=== PATIENT | female | born 1980 | race African-American/Black ===

== ENCOUNTER 2021-07-05 12:31 | Outpatient (REF) | payer MEDICAID, SELFPAY ==
--- NOTE | ~2021-07-05 | MM_ITS ---
EXAMINATION: MM SCREENING DIGITAL BREAST TOMOSYNTHESIS, BILATERAL CLINICAL INFORMATION: Screening. Asymptomatic. Age 41. No prior breast imaging. Family history breast cancer, maternal aunt. The lifetime risk of breast cancer based on the Tyrer-Cuzick Model is 19%. COMPARISON: None (current study represents initial baseline exam). TECHNIQUE: Digital breast tomosynthesis is performed in both the craniocaudal and mediolateral oblique views along with computer-aided detection (CAD). Synthesized 2D images are generated from the tomosynthesis. Additional views are obtained: Right CC x2, right MLO, left CC x2, left MLO, exaggerated left CC. FINDINGS: The breasts are almost entirely fatty (ACR BI-RADS breast composition Category a). There is an oval nodule right breast mid upper outer quadrant measuring approximately 1.3 x 0.8 cm. Patient will be recalled for additional imaging to further characterize with targeted ultrasound. The remainder of the bilateral breasts show no significant mass or architectural abnormality or abnormal calcifications. The axilla and skin contours are unremarkable. MM/MM tomosynthesis screening BI IMPRESSION: 1. Right: Nodule mid upper outer quadrant 1.3 x 0.8 cm. 2. Left: No mammographic evidence of malignancy. ASSESSMENT: BI-RADS 0: Incomplete - Need Additional Imaging Evaluation RECOMMENDATION: 1. Targeted ultrasound right breast. 2. Radiology department staff will contact the patient for additional imaging. This patient's information was entered into a reminder system with a target due date for their next mammogram.
== END 2021-07-05 12:32 | disposition home or self-care (01) ==
LOC: HO.MAMMO 12:31
PROVIDERS: PCP Registered Nurse; Visit Provider Registered Nurse
DX: Z12.31 Encounter for screening mammogram for malignant neoplasm of breast (principal)
CPT/HCPCS: 77063; 77067

== ENCOUNTER 2021-07-15 15:16 | Outpatient (REF) | payer MEDICAID, SELFPAY ==
--- NOTE | ~2021-07-15 | US_ITS ---
EXAMINATION: US DIAGNOSTIC ULTRASOUND BREAST, RIGHT CLINICAL INFORMATION: Recall from baseline screening for smooth oval nodular asymmetry mid upper outer right breast. COMPARISON: Mammography 07/05/2021. TECHNIQUE: Ultrasound right breast is targeted to the upper outer quadrant. Grayscale imaging is performed without and with harmonics. Patient is imaged with arm up and arm down and oblique supine as well as semiupright. FINDINGS: There is no cystic or solid mass or architectural abnormality or focal duct ectasia. There is no ultrasound correlate. Results are discussed with the patient at time of visit. Finding on mammography has benign characteristics and may represent island of fibroglandular tissue. Chronicity is unknown given first appearance on baseline exam. Management plan is for short interval six-month follow-up right mammography. US/US breast RT limited IMPRESSION: No ultrasound correlate for probable benign finding on baseline screening mammography. ASSESSMENT: BI-RADS 3: Probably Benign RECOMMENDATION: Diagnostic right mammography in 6 months. This patient's information was entered into a reminder system with a target due date for their next mammogram.
== END 2021-07-15 15:17 | disposition home or self-care (01) ==
LOC: HO.MAMMO 15:16
PROVIDERS: PCP Registered Nurse; Visit Provider Registered Nurse
DX: N63.11 Unspecified lump in the right breast, upper outer quadrant (principal)
CPT/HCPCS: 76642

== ENCOUNTER 2022-01-17 14:43 | Outpatient (REF) | payer MEDICAID, SELFPAY ==
--- NOTE | ~2022-01-17 | MM_ITS ---
EXAMINATION: MM DIAGNOSTIC DIGITAL BREAST TOMOSYNTHESIS, RIGHT CLINICAL INFORMATION: Short interval six-month follow-up probable benign oval nodular asymmetry mid upper outer right breast initially noted at baseline exam. No ultrasound correlate. TC score 19%. COMPARISON: Mammography: 07/05/2021; right breast ultrasound 07/15/2021. TECHNIQUE: Digital breast tomosynthesis is performed in both the craniocaudal and mediolateral oblique views along with computer-aided detection (CAD). Synthesized 2D images are generated from the tomosynthesis. Additional exaggerated right CC and right MLO views are provided. FINDINGS: The breasts are almost entirely fatty (ACR BI-RADS breast composition Category a). Parenchymal pattern is similar to the baseline exam. The oval nodular asymmetry mid upper outer quadrant is stable. There is no developing density or interval architectural abnormality. Right breast will be reassessed again at time of annual bilateral mammography, due in 6 months. Results are provided to the patient at time of visit by the technologist. MM/MM tomosynthesis diagnostic RT IMPRESSION: -Right breast parenchymal pattern is stable when compared with prior baseline study. -No developing density or architectural abnormality. ASSESSMENT: BI-RADS 3: Probably Benign RECOMMENDATION: Diagnostic mammography at time of annual bilateral mammography, due in 6 months. This patient's information was entered into a reminder system with a target due date for their next mammogram.
== END 2022-01-17 14:44 | disposition home or self-care (01) ==
LOC: HO.MAMMO 14:43
PROVIDERS: PCP Registered Nurse; Visit Provider Registered Nurse
DX: N63.11 Unspecified lump in the right breast, upper outer quadrant (principal)
CPT/HCPCS: 77061; 77065

== ENCOUNTER 2022-09-07 13:41 | Emergency (ER) | payer MEDICAID, SELFPAY ==
--- NOTE | ~2022-09-07 | US_ITS ---
EXAMINATION: US OBSTETRICAL ULTRASOUND CLINICAL INFORMATION: Left lower quadrant pain with history of miscarriage COMPARISON: None available. Findings; There is a small fluid collection in the endometrial canal measuring 0.33 x 0.35 cm. This could represent a very early gestational sac. 4 weeks 6 days by ultrasound criteria. There is no pole. There is no yolk sac. Below the gestational sac in the lower uterine segment the endometrium is characterized by more mixed echogenicity. Some of this may be fluid and/or cystic change. Etiology is indeterminate. This could be blood product. The right ovary is not seen. The left ovary is seen transvaginally only. Measures 2.6 x 1.5 x 1.8 cm. The custodial worker outlines an area of abnormal echogenicity measuring approximately 2.3 x 2.1 x 2.6 cm, within the myometrium. However the margins are poorly defined within the surrounding myometrium. This could represent a fibroid There is no free pelvic fluid US/US OB pelvic and transvaginal IMPRESSION: There is a small fluid collection and the endometrial canal which could represent an early intrauterine gestational sac correlating to 4 weeks 6 days. There is no pole or yolk sac seen. Below this however in the lower uterine segment there is a more heterogeneous appearance to the endometrial canal. The etiology here is uncertain. This could represent blood products or microcystic change associated with the endometrium of other etiology. Attention to follow-up. Abnormal echogenicity in the myometrium posteriorly could represent fibroid change. Borders are poorly defined. Attention to follow-up. Recommend obstetrical consultation and follow-up
[2022-09-07 13:45] VITALS: BP 174/94; PULSE 106; RESP 18; TEMP 36.5; O2SAT 100; BMI 51.4
--- NOTE | 2022-09-07 13:49 | ED.GENADULT ---
HPI - General Adult General Chief complaint: Abdominal Pain Stated complaint: / left side pain/ spotting Time Seen by Provider: 09/07/22 18:15 Related Data Home Medications ?Medication ?Instructions ?Recorded ?Confirmed vitamin with calcium 1 tab PO QAM 09/11/22 no.72-iron 27 mg-folic acid 1 mg tablet ( Vitamins Plus Low Iron) Allergies Allergy/AdvReac Type Severity Reaction Status Date / Time morphine Allergy Severe hives Verified 09/03/23 10:49 PMFSH Past Medical History Surgical History (Updated 09/03/23 @ 10:50 by THIERNO Simpson) Hx of section Social History Social History (Updated 09/03/23 @ 10:50 by THIERNO Simpson) Alcohol intake: current Alcohol intake frequency: holidays/special occasions only Patient Tobacco Use Status: Never used Tobacco 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 42 year old female with no pmhx A2 presents with recent + at home via urine dipstick presenting w/ abd cramping on L and scant amount of brown spotting when she wipes. 6/10 Headache feels like typical. Neuro nonfocal Plan- labs, hcg, imaging urine. Medical Decision Making Lab Data 09/07/22 14:11 09/07/22 14:11 Labs: Lab Results 09/07/22 Range/Units 14:11 WBC 9.1 (4.8-10.8) X10*3/uL RBC 4.59 (4.20-5.50) X10*6/uL Hgb 10.8 L (12.0-16.0) g/dl Hct 34.2 L (37.0-47.0) % MCV 74.5 L (80.0-98.0) fL MCH 23.5 L (27.0-33.0) pg MCHC 31.6 (31.0-35.0) g/dl RDW 17.4 H (11.0-16.0) % Plt Count 257 (160-400) X10*3/uL MPV 10.8 (9.4-12.3) fL Immature Gran % (Auto) 0.4 (0.0-0.4) % Neut % (Auto) 71.9 (45-73) % Lymph % (Auto) 20.3 (20-40) % [place] % (Auto) 5.7 (2-11) % Eos % (Auto) 1.5 (0-4) % Baso % (Auto) 0.2 (0-2) % Lymph # (Auto) 1.8 (1.2-4.9) X10*3/uL [place] # (Auto) 0.5 (0.1-1.2) X10*3/uL Eos # (Auto) 0.1 (0.0-0.4) X10*3/uL Baso # (Auto) 0.0 (0.0-0.2) X10*3/uL Abs Immat Gran (auto) 0.04 H (0.00-0.03) X10*3/uL Absolute Neuts (auto) 6.5 (2.0-8.3) x10*3/uL Absolute Nucleated RBC 0.000 (0.0-0.012) X10*3/uL Nucleated RBC % (auto) 0.0 (0.0-0.2) /100WBC Sodium 138 (135-145) mmol/L Potassium 4.2 (3.3-5.1) mmol/L Chloride 106 (96-108) mmol/L Carbon Dioxide 25 (22-29) mmol/L Anion Gap 11 L (12-20) BUN 10 (9-16) mg/dL Creatinine 0.85 (0.5-1.4) mg/dL Estim Creat Clear Calc 135.7 Estimated GFR > 60 Random Glucose 125 H (60-115) mg/dL Calcium 9.3 (8.4-10.2) mg/dL Magnesium 1.9 (1.6-2.6) mg/dL Total Bilirubin 0.4 (0.0-1.0) mg/dL AST 13 (5-31) U/L ALT 14 (0-31) U/L Alkaline Phosphatase 59 (39-117) U/L Total Protein 7.0 (6.5-8.0) g/dL Albumin 4.0 (3.5-5.0) g/dL Lipase 31 (8-78) U/L Beta HCG, Quant 480 mIU/mL Urine Color Yellow Urine Appearance Clear Urine pH 5.0 (5.0-9.0) Ur Specific [place] >= 1.030 H (1.005-1.025) Urine Protein Trace (Neg-Trace) mg/dL Urine Glucose (UA) Negative (Negative) mg/dL Urine Ketones Negative (Negative) mg/dL Urine Blood Large (3+) H (Negative) Urine Nitrite Negative (Negative) Ur Leukocyte Esterase Negative (Negative) Urine RBC 3-5 H (0-2) /HPF Urine WBC 0-5 (0-5) /HPF Ur Squamous Epith Cells 3-5 (0-2) /HPF Urine Bacteria None Seen (None Seen) Hyaline Casts 0-2 (0-2) /LPF COVID-19 (MARY) Negative (Negative) COVID-19 Clin Com See Note Blood Type O Positive Discharge Plan Discharge Clinical Impression: Eloped from emergency department Patient Disposition: Elopement Prescriptions: No Action Vitamin Plus Low Iron 27 mg iron- 1 mg tablet 1 tab PO QAM Interventions: ED Discharge Assessment Last Done: 09/07/22 17:28 Discharge Date/Time: 09/07/22 17:28 Print Language: Icelandic
[2022-09-07 14:20] LABS: MANUAL DIFF FLAG NO
[2022-09-07 14:30] LABS: Basophils Percent Auto 0.2 % (0-2); Eosinophils Absolute Auto 0.1 X10*3/uL (0.0-0.4); Eosinophils Percent Auto 1.5 % (0-4); Hematocrit 34.2 % (37.0-47.0); Hemoglobin 10.8 g/dl (12.0-16.0); Imm Gran Abs Auto 0.04 X10*3/uL (0.00-0.03); Imm Gran Pct Auto 0.4 % (0.0-0.4); Lymphocytes Absolute Auto 1.8 X10*3/uL (1.2-4.9); Lymphocytes Percent Auto 20.3 % (20-40); Mean Corpuscular HGB Conc 31.6 g/dl (31.0-35.0); Mean Corpuscular Hemoglobin 23.5 pg (27.0-33.0); Mean Corpuscular Volume 74.5 fL (80.0-98.0); Mean Platelet Volume 10.8 fL (9.4-12.3); Monocytes Absolute Auto 0.5 X10*3/uL (0.1-1.2); Monocytes Percent Auto 5.7 % (2-11); Neutrophils Absolute Auto 6.5 x10*3/uL (2.0-8.3); Neutrophils Percent Auto 71.9 % (45-73); Platelet Count 257 X10*3/uL (160-400); Red Blood Count 4.59 X10*6/uL (4.20-5.50); Red Cell Distribution Width 17.4 % (11.0-16.0); White Blood Count 9.1 X10*3/uL (4.8-10.8)
[2022-09-07 14:34] LABS: Appearance Urine Clear; Color Urine Yellow; Glucose Urine UA Negative (Negative); Leukocyte Esterase Urine Negative (Negative); Nitrite Urine Negative (Negative); Specific Gravity - Urine >= 1.030 (1.005-1.025); UMIC TRIGGER UACC YES; Urine Blood Large (3+) (Negative); Urine Ketones Negative (Negative); Urine Protein Trace mg/dL (Neg-Trace)
[2022-09-07 14:43] LABS: COVID-19 Test Negative (Negative); IDNOW Serial# 9DB6401D
[2022-09-07 14:45] LABS: Bacteria Urine None Seen (None Seen); Hyaline Casts Urine 0-2 /LPF (0-2); WBC Urine 0-5 /HPF (0-5)
[2022-09-07 14:46] LABS: Alanine Aminotransferase 14 U/L (0-31); Alkaline Phosphatase 59 U/L (39-117); Anion Gap 11 (12-20); Aspartate Amino Transferase 13 U/L (5-31); Bilirubin Total 0.4 mg/dL (0.0-1.0); Blood Urea Nitrogen 10 mg/dL (9-16); Calcium 9.3 mg/dL (8.4-10.2); Carbon Dioxide 25 mmol/L (22-29); Chloride 106 mmol/L (96-108); Creatinine Clr Calc Pharmacy 135.7; Estimated Glomerular Filt Rate > 60; Glucose Random 125 mg/dL (60-115); Lipase 31 U/L (8-78); Magnesium 1.9 mg/dL (1.6-2.6); Potassium 4.2 mmol/L (3.3-5.1); Sodium 138 mmol/L (135-145)
[2022-09-07 14:54] LABS: HCG Quantitative 480 mIU/mL
== END 2022-09-07 17:28 | disposition left against medical advice (07) ==
PROVIDERS: Physician Assistant; Emergency Provider Emergency Medicine; PCP Registered Nurse
DX: O26.91 Pregnancy related conditions, unspecified, first trimester (principal); R10.2 Pelvic and perineal pain; R51.9 Headache, unspecified; Z3A.01 Less than 8 weeks gestation of pregnancy; Z20.822 Contact with and (suspected) exposure to COVID-19; Z20.828 Contact with and (suspected) exposure to other viral communicable diseases; Z79.899 Other long term (current) drug therapy
CPT/HCPCS: 36415; 76801; 76817; 80053; 81001; 83690; 83735; 84702; 85025; 86900; 86901; 87635; 99282; 99284

== ENCOUNTER 2022-09-09 08:22 | Emergency (ER) | payer MEDICAID, SELFPAY ==
--- NOTE | ~2022-09-09 | US_ITS ---
EXAMINATION: US OBSTETRICAL ULTRASOUND CLINICAL INFORMATION: Lower abdominal pain and cramping. Spotting. COMPARISON: Previous exam 09/07/2022 LMP: 07/29/2022. Gestational age by maternal dates is 6 weeks 0 days. Estimated date of delivery by maternal dates is 05/05/2023. TECHNIQUE: Transabdominal and transvaginal first trimester OB ultrasound. Transvaginal exam was performed for better visualization of uterus and ovaries. Exam is limited due to body habitus and position and shape of the uterus. FINDINGS: The uterus measures 14.7 x 7.1 x 7.6 cm in dimension. There are 2 focal lesions suggestive of fibroids measuring 3.2 x 2.7 x 2.3 cm in the posterior right uterus, and 1 cm in the left lower uterine segment or cervix. The endometrium is abnormally thickened and heterogeneous appearing with small cystic areas. Endometrial thickness measures 3 cm. No intrauterine is seen. The right ovary measures 2.8 x 1.9 x 2.6 cm. There is a 1.8 cm complex right ovarian cyst probably representing a corpus luteum. The left ovary is normal and measures 2.1 x 1.7 x 2.5 cm. There is no fluid in the pelvis. US/US OB pelvic and transvaginal IMPRESSION: Limited exam. No intrauterine seen. Abnormally thickened heterogeneous-appearing endometrium. Small fibroids.
[2022-09-09 08:25] VITALS: BP 181/88; PULSE 74; RESP 18; TEMP 36.6; O2SAT 98; BMI 51.7
--- NOTE | 2022-09-09 09:14 | ED_ITS ---
HPI - General Chief complaint: Vaginal Bleeding Stated complaint: cramps 4wks preg passing clot Time Seen by Provider: 09/09/22 08:35 Source: patient Mode of arrival: ambulatory Limitations: no limitations History of Present Illness HPI Narrative: Patient is a 42 year old female presented to the ED for abnormal vaginal bleeding and abdominal cramping. Her cramps started appoximately 1 week ago, and were initially unilateral on the left side. The cramps have progressed to the entire lower abdomen and pelvic area. She is concerned, because they are not going away. She has also endorsed a small amount of uterine bleeding that she described as period blood in color. She was here on 09/07 for her symptoms at which time she had an abdominal US and vaginal US, but had to leave before she could find out the results. All of her prior deliveries were C-sections. She denies fever, back, headache, difficulty with urination and abnormal discharge. Her prior deliveries were in [place], but she is planning to follow with [facility] for her current . She states she has no had treatment yet. MD Complaint: abdominal pain and vaginal bleeding Onset (ago): week(s) (1) Pain Consistency: constant Location: pelvis and abdomen Severity: mild Quality: Cramping, Aching and Dull Relieving factors: none Exacerbating factors: none Associated symptoms: vaginal bleeding (spotting) and abdominal pain (Lower abdomen/suprapubic) Vaginal discharge: none Vaginal bleeding: light Patient : Yes OB History - Current : no complications OB History - Previous Pregnancies: other ('s) care: none Related Data : 6 Para: 3 Total number of abortions (spontaneous and elective): 2 Allergies Allergy/AdvReac Type Severity Reaction Status Date / Time Unable to Assess Allergy Unverified 09/07/22 13:55 Review of Systems Review of Systems: Constitutional : No Fever, No Chills Cardiovascular : No Chest Pain, No SOB Respiratory : No Wheezing Gastrointestinal : + Nausea, No Vomiting, No Diarrhea, + abdominal pain, Genitourinary : + vaginal bleeding/spotting/irregular bleeding, No Dysuria, No Urinary Frequency, + pelvic pain, No vaginal discharge, no hematuria Musculoskeletal : No Myalgias Neuro : No Weakness, No Headache Yes all other systems are reviewed and are negative PMFSH Past Medical History Attestation statement: The following information was validated with the patient. Source: old records reviewed and nursing notes reviewed : 6 Para: 3 Total number of abortions (spontaneous and elective): 2 Social History Social History Alcohol intake: never Use of substances other than those prescribed or required for medical reasons: No Advance Directives: No Advance Directives Information Provided: Yes Patient : Yes Physical Exam Vital Signs: Vital Signs: Last Vital Signs Temp 98 F 09/09/22 08:25 Pulse 74 09/09/22 08:25 Resp 18 09/09/22 08:25 BP 181/88 H 09/09/22 08:25 Pulse Ox 98 09/09/22 08:25 O2 Del Method Room Air 09/09/22 08:25 BMI result Body Mass Index 51.7 vital signs have been reviewed as normal and appeared to be correct. Blood pressure 181/88. Heart rate normal. Respiration rate normal. Temperature normal. Oxygen saturation normal. Appearance: Alert. Oriented X3. No acute distress. Eyes: PERRLA. ENT: No trismus noted. No drooling noted. No muffled voice noted. Neck: Normal inspection. d. CVS: Normal heart rate and rhythm. Heart sound normal. Murmur on the LUSB. Pulses normal throughout. Respiratory: No respiratory distress. Painless inspiration. Breath sounds normal. No wheezes/rales/rhonchi noted. Chest nontender. No accessory muscle usage noted or decreased air movement noted. Abdomen: Soft. Tender in the lower abdominal quadrants and pelvic region. Bowel sounds normal in all 4 quadrants. No distention noted. No organomegaly noted. No visible injury noted. : Supervised by EDMUND Quigley. Normal external appearance of urethra. In the vaginal vault patient has brown colored blood. No active bleeding. No lesions/lacerations or discharge or tenderness noted. Speculum exam normal appearance/palpation of vagina normal. No abnormal vaginal discharge noted. Otherwise no vaginal erythema. No foreign bodies noted. No vaginal laceration/lesions or active bleeding noted. No tissue present in vagina. No vaginal mass noted. No vaginal swelling noted. No vaginal tenderness noted. Normal appearance of cervix. Normal palpation of cervix. Cervical os is closed. No abnormal cervical discharge noted. No cervical lesion/mass. No Bartholin cyst noted. No cervical motion tenderness noted. Negative chandelier sign. Normal bimanual exam. Uterine size normal. Bladder normal to palpation. Uterine consistency normal. Normal cervical palpation. Uterine mobility normal. Uterine shape normal. Normal adnexa. Normal rectovaginal exam. Back: No CVA tenderness. Skin: Skin warm and dry. Extremities: No lower extremity edema. Extremities nontender. Neuro: Oriented X 3. Course Reevaluation(s) Reevaluation #1: Labs reviewed - baseline anemia which is similar compared to prior H&H 10.8/34.7 - anion gap 11 - serum quant today at 456 which is decreased from 480 2 days ago. - gonorrhea/chlamydia/bacterial vaginosis/Trichomonas and yeast currently pending at this time although patient does not have any thoughts of STDs and she does not have any abnormal discharge only the brown blood noted in her vaginal vault. - patient is O positive for blood type. Ultrasound revealed limited exam. No intrauterine seen. Abnormally thickened heterogeneous appearing endometrium. Small fibroids. Therefore I consulted with Dr. Chance and he reported that the patient should be given return precautions and I explained to the patient that this could possibly be an incomplete versus ectopic we cannot completely rule out. Although we believe she might have had a spontaneous . We explained this to her. Although due to still elevated quant levels she will have to have repeat quant levels in 48 hours. I placed an order in the computer. She will also call Dr. Chance office in follow-up within the next few days. I also instructed patient if she has any new or worsening symptoms such as fevers, chills, nausea or vomiting, worsening abdominal cramping or vaginal bleeding she will have to return immediately. She understands that she might have incomplete versus ectopic versus spontaneous . She is agreeable with the plan. Time: 12:53 Medical Decision Making Medical Decision Making [facility] Narrative: This patient presents with vaginal bleeding in the first trimester. DDX includes ectopic, IUP, threatened/inevitable , along with completed . Patient is HDS and without a history of coagulopathy or infectious symptoms. Doubt alternate acute emergent pathology. Plan: bHCG, +/- basic labs, type and screen, TVUS, reassess Consult Healthcare Provider Management of the patient was discussed with: Inductor Tester Dr. Chance OBN Lab Data [facility] Lab Attestation statement: I reviewed the patient's lab results. 09/09/22 09:29 09/09/22 09:29 Labs: Lab Results 09/09/22 09/09/22 09/09/22 Range/Units 09:29 09:29 09:29 WBC 7.2 (4.8-10.8) X10*3/uL RBC 4.61 (4.20-5.50) X10*6/uL Hgb 10.8 L (12.0-16.0) g/dl Hct 34.7 L (37.0-47.0) % MCV 75.3 L (80.0-98.0) fL MCH 23.4 L (27.0-33.0) pg MCHC 31.1 (31.0-35.0) g/dl RDW 17.8 H (11.0-16.0) % Plt Count 234 (160-400) X10*3/uL MPV 10.6 (9.4-12.3) fL Immature Gran % (Auto) 0.4 (0.0-0.4) % Neut % (Auto) 69.5 (45-73) % Lymph % (Auto) 21.2 (20-40) % [place] % (Auto) 6.5 (2-11) % Eos % (Auto) 2.1 (0-4) % Baso % (Auto) 0.3 (0-2) % Lymph # (Auto) 1.5 (1.2-4.9) X10*3/uL [place] # (Auto) 0.5 (0.1-1.2) X10*3/uL Eos # (Auto) 0.2 (0.0-0.4) X10*3/uL Baso # (Auto) 0.0 (0.0-0.2) X10*3/uL Abs Immat Gran (auto) 0.03 (0.00-0.03) X10*3/uL Absolute Neuts (auto) 5.0 (2.0-8.3) x10*3/uL Absolute Nucleated RBC 0.000 (0.0-0.012) X10*3/uL Nucleated RBC % (auto) 0.0 (0.0-0.2) /100WBC PT 11.2 (10.0-13.1) SEC INR 1.0 (0.9-1.1) Sodium 139 (135-145) mmol/L Potassium 4.1 (3.3-5.1) mmol/L Chloride 108 (96-108) mmol/L Carbon Dioxide 24 (22-29) mmol/L Anion Gap 11 L (12-20) BUN 10 (9-16) mg/dL Creatinine 0.84 (0.5-1.4) mg/dL Estim Creat Clear Calc 137.7 Estimated GFR > 60 Random Glucose 112 (60-115) mg/dL Calcium 9.1 (8.4-10.2) mg/dL Magnesium 2.0 (1.6-2.6) mg/dL Total Bilirubin 0.3 (0.0-1.0) mg/dL AST 12 (5-31) U/L ALT 12 (0-31) U/L Alkaline Phosphatase 53 (39-117) U/L Total Protein 6.6 (6.5-8.0) g/dL Albumin 3.7 (3.5-5.0) g/dL Beta HCG, Quant 456 mIU/mL Independent Interpretation I performed an independent interpretation of an: Ultrasound ( ultrasound reviewed by myself agreeable radiologist report) Radiology Impression Discussion of test interpretation with radiology: I have reviewed the radiologist's reading. Radiologist Impression: FINDINGS: The uterus measures 14.7 x 7.1 x 7.6 cm in dimension. There are 2 focal lesions suggestive of fibroids measuring 3.2 x 2.7 x 2.3 cm in the posterior right uterus, and 1 cm in the left lower uterine segment or cervix. The endometrium is abnormally thickened and heterogeneous appearing with small cystic areas. Endometrial thickness measures 3 cm. No intrauterine is seen. The right ovary measures 2.8 x 1.9 x 2.6 cm. There is a 1.8 cm complex right ovarian cyst probably representing a corpus luteum. The left ovary is normal and measures 2.1 x 1.7 x 2.5 cm. There is no fluid in the pelvis. US/US OB pelvic and transvaginal IMPRESSION: Limited exam. No intrauterine seen. Abnormally thickened heterogeneous-appearing endometrium. Small fibroids. External Record Review Patient's prior visit was reviewed and patient actually eloped after being seen in triage she labs reviewed she had mild anemia with an H&H of 10.8/34.2 her anion gap was 11. Her random glucose was 125. Her serum quant was 480. Her UA revealed blood otherwise no evidence of UTI she was negative for COVID. Discharge Plan Discharge Clinical Impression: First trimester bleeding Patient Disposition: Home, Self-Care Instructions: Ectopic (DC), Miscarriage (ED) Additional Instructions: It appears that you might of had a spontaneous although we cannot completely rule out incomplete or ectopic at this time. Therefore you will have to return in 2 days not to the ER although to the ou tpatient lab at the [facility] and we placed an order for an outpatient HCG lab on 09/11/2022 for 08:00. You should also call Dr. Chance is office on Sunday and make a follow-up appointment for that day or that week. Return if you have any new or worsening symptoms such as fevers, chills, nausea vomiting, worsening abdominal pain or worsening vaginal bleeding or any other symptoms complaints or concerns Referrals: Malathi Hall FNP [Primary Care Provider] - 3 days Praful Chance MD [Physician] - (Your going to call to make a follow-up appointment for Sunday)
[2022-09-09 09:33] LABS: MANUAL DIFF FLAG NO
[2022-09-09 09:48] LABS: Basophils Percent Auto 0.3 % (0-2); Eosinophils Absolute Auto 0.2 X10*3/uL (0.0-0.4); Eosinophils Percent Auto 2.1 % (0-4); Hematocrit 34.7 % (37.0-47.0); Hemoglobin 10.8 g/dl (12.0-16.0); Imm Gran Abs Auto 0.03 X10*3/uL (0.00-0.03); Imm Gran Pct Auto 0.4 % (0.0-0.4); Lymphocytes Absolute Auto 1.5 X10*3/uL (1.2-4.9); Lymphocytes Percent Auto 21.2 % (20-40); Mean Corpuscular HGB Conc 31.1 g/dl (31.0-35.0); Mean Corpuscular Hemoglobin 23.4 pg (27.0-33.0); Mean Corpuscular Volume 75.3 fL (80.0-98.0); Mean Platelet Volume 10.6 fL (9.4-12.3); Monocytes Absolute Auto 0.5 X10*3/uL (0.1-1.2); Monocytes Percent Auto 6.5 % (2-11); Neutrophils Percent Auto 69.5 % (45-73); Platelet Count 234 X10*3/uL (160-400); Red Blood Count 4.61 X10*6/uL (4.20-5.50); Red Cell Distribution Width 17.8 % (11.0-16.0); White Blood Count 7.2 X10*3/uL (4.8-10.8)
[2022-09-09 09:50] LABS: Prothrombin Time 11.2 SEC (10.0-13.1)
[2022-09-09 09:57] LABS: Alanine Aminotransferase 12 U/L (0-31); Albumin Level 3.7 g/dL (3.5-5.0); Alkaline Phosphatase 53 U/L (39-117); Anion Gap 11 (12-20); Aspartate Amino Transferase 12 U/L (5-31); Bilirubin Total 0.3 mg/dL (0.0-1.0); Blood Urea Nitrogen 10 mg/dL (9-16); Calcium 9.1 mg/dL (8.4-10.2); Carbon Dioxide 24 mmol/L (22-29); Chloride 108 mmol/L (96-108); Creatinine Clr Calc Pharmacy 137.7; Estimated Glomerular Filt Rate > 60; Glucose Random 112 mg/dL (60-115); HCG Quantitative 456 mIU/mL; Potassium 4.1 mmol/L (3.3-5.1); Sodium 139 mmol/L (135-145); Total Protein 6.6 g/dL (6.5-8.0)
--- NOTE | 2022-09-09 13:24 | PM.GYNCN ---
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 Her cramps started appoximately 1 week ago, the patient came to the emergency room on 09/07 for similar symptoms at which time she had an abdominal US and vaginal US, but had to leave before she could find out the results. No other associated symptoms. 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 MAKER HELPER Physical Exam Vitals Vital signs: Temp Pulse Resp BP Pulse Ox O2 Del Method 98 F 74 18 181/88 H 98 Room Air 09/09/22 08:25 09/09/22 08:25 09/09/22 08:25 09/09/22 08:25 09/09/22 08:25 09/09/22 08:25 BMI result Body Mass Index 51.7 Additional Comments: Reported by ELENA Del Toro as the following: Abdominal exam soft nontender no guarding Pelvic exam: minimal blood vagina, no evidence of active bleeding, no uterine and/ or adnexa masses or tenderness 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[employer]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 HELPER - Results Labs 09/09/22 09:29 09/09/22 09:29 Labs: Short CBC 09/09/22 Range/Units 09:29 WBC 7.2 (4.8-10.8) X10*3/uL Hgb 10.8 L (12.0-16.0) g/dl Hct 34.7 L (37.0-47.0) % Plt Count 234 (160-400) X10*3/uL BMP 09/09/22 09:29 Sodium 139 Potassium 4.1 Chloride 108 Carbon Dioxide 24 BUN 10 Creatinine 0.84 Calcium 9.1 Liver Function 09/09/22 Range/Units 09:29 Total Bilirubin 0.3 (0.0-1.0) mg/dL AST 12 (5-31) U/L ALT 12 (0-31) U/L Alkaline Phosphatase 53 (39-117) U/L Albumin 3.7 (3.5-5.0) g/dL Imaging US - abdomen: Radiologist's impression: ITS Impressions Pelvic/Transvag US 09/09/22 10:05 IMPRESSION: Limited exam. No intrauterine seen. Abnormally thickened heterogeneous-appearing endometrium. Small fibroids. Assessment and Plan (1) First trimester bleeding: Status: Acute Discussed the following with Elena Powers: Differential diagnosis include spontaneous , incomplete , ectopic . HCG in 48 hours. Signs and symptoms of incomplete and ectopic to be given to the patient, Instructions to be given to patient to come back to the emergency room in case of vaginal bleeding, abdominal pain, nausea or vomiting, follow-up in the office in 48 hours with repeat hCG Time Spent With Patient Time: Total time managing care of this patient today ____ minutes.
[2022-09-09 14:52] LABS: CT PCR NOT DETECTED (Not Detect.); NG PCR NOT DETECTED (Not Detect.)
[2022-09-11 13:04] LABS: BV Int Neg Control Negative (Negative); BV Int Pos Control Positive (Positive)
== END 2022-09-09 13:36 | disposition home or self-care (01) ==
PROVIDERS: Physician Assistant Medical; Emergency Provider Emergency Medicine; PCP Registered Nurse
DX: O46.91 Antepartum hemorrhage, unspecified, first trimester (principal); Z3A.01 Less than 8 weeks gestation of pregnancy
CPT/HCPCS: 0353U; 36415; 76801; 76817; 80053; 83735; 84702; 85025; 85610; 87480; 87510; 87660; 99284

== ENCOUNTER 2022-09-11 09:14 | Outpatient (REF) | payer MEDICAID, SELFPAY ==
[2022-09-11 10:03] LABS: HCG Quantitative 400 mIU/mL
== END 2022-09-11 09:15 | disposition home or self-care (01) ==
LOC: HO.LAB 09:14
PROVIDERS: PCP Registered Nurse; Visit Provider Obstetrics & Gynecology
DX: O20.9 Hemorrhage in early pregnancy, unspecified (principal)
CPT/HCPCS: 36415; 84702; 99212

== ENCOUNTER 2022-12-22 10:54 | Outpatient (REF) | payer MEDICAID, SELFPAY ==
[2022-12-23 04:31] LABS: HBS Num1 0.01 mIU/mL (0-7.99); HBc Num1 0.14 S/CO (0.00-0.79); HBsAGNum1 0.35 S/CO (0.00-0.99); Hepatitis B Core Antibody Nonreactive (Nonreactive); Hepatitis B Surface Antigen Negative (Negative); ~HepC Num1 1.23 S/CO (0.00-0.79); ~Hepatitis A Antibody IgM Nonreactive (Nonreactive); ~Hepatitis B Surface Antibody NONREACTIVE (Nonreactive); ~Hepatitis C Antibody Reactive (Nonreactive)
[2022-12-25 15:29] LABS: TS Negative Control Passed; TS Panel A 0; TS Panel B 0; TS Positive Control Passed; TSpotTB Negative (Negative)
== END 2022-12-22 10:55 | disposition home or self-care (01) ==
LOC: HO.HHCL 10:54
PROVIDERS: Visit Provider Internal Medicine
DX: Z00.00 Encounter for general adult medical examination without abnormal findings (principal); Z11.1 Encounter for screening for respiratory tuberculosis
CPT/HCPCS: 36415; 86481; 86704; 86706; 86709; 86803; 87340

== ENCOUNTER 2023-06-01 13:05 | Outpatient (REF) | payer MEDICAID, SELFPAY ==
[2023-06-01 16:36] LABS: Hematocrit 33.1 % (37.0-47.0); Mean Corpuscular HGB Conc 30.2 g/dl (31.0-35.0); Mean Corpuscular Hemoglobin 21.1 pg (27.0-33.0); Mean Corpuscular Volume 69.7 fL (80.0-98.0); Mean Platelet Volume 10.8 fL (9.4-12.3); Platelet Count 263 X10*3/uL (160-400); Red Blood Count 4.75 X10*6/uL (4.20-5.50); Red Cell Distribution Width 19.9 % (11.0-16.0); White Blood Count 7.8 X10*3/uL (4.8-10.8)
[2023-06-01 16:40] LABS: Estimated Average Glucose 126 mg/dL
[2023-06-01 16:57] LABS: Alanine Aminotransferase 11 U/L (0-31); Alkaline Phosphatase 57 U/L (39-117); Anion Gap 11 (12-20); Aspartate Amino Transferase 14 U/L (5-31); Bilirubin Total 0.3 mg/dL (0.0-1.0); Blood Urea Nitrogen 10 mg/dL (9-16); Calcium 9.3 mg/dL (8.4-10.2); Carbon Dioxide 22 mmol/L (22-29); Chloride 109 mmol/L (96-108); Cholesterol 163 mg/dL (<200); Estimated Glomerular Filt Rate > 60; Glucose Random 76 mg/dL (60-115); HDL Cholesterol 47 mg/dL (>40); Iron 23 mcg/dL (30-160); LDL Cholesterol Calculated 102 mg/dL (<100); Percent Iron Saturation 8 % (15-50); Sodium 138 mmol/L (135-145); Total Iron Binding Capacity 295 mcg/dL (228-428); Total Protein 7.5 g/dL (6.5-8.0); Triglycerides 73 mg/dL (<150); Unsaturated Iron Binding 272 ug/dL
[2023-06-01 17:01] LABS: Ferritin 7 ng/mL (10-250); TSH reflex Free T4 0.74 uIU/mL (0.32-4.0); Vitamin D 25-OH Total 15.2 ng/mL (>30)
[2023-06-01 18:08] LABS: Creatinine Urine 137.01 mg/dL; Microalbum/Creatinine Ratio Ur 9.4 ug/mg cr (<30)
[2023-06-02 04:16] LABS: Syphilis Screen Nonreactive (Nonreactive)
[2023-06-02 04:40] LABS: HBS Num1 0.44 mIU/mL (0-7.99); HBc Num1 0.15 S/CO (0.00-0.79); HIV AB/AG Nonreactive (Nonreactive); HIV Num 1 0.05 S/CO (0.00-0.99); Hepatitis B Core Antibody Nonreactive (Nonreactive); Hepatitis B Surface Antigen Negative (Negative); ~HepC Num1 1.93 S/CO (0.00-0.79); ~Hepatitis B Surface Antibody NONREACTIVE (Nonreactive); ~Hepatitis C Antibody Reactive (Nonreactive)
[2023-06-02 05:51] LABS: CT PCR NOT DETECTED (Not Detect.); NG PCR NOT DETECTED (Not Detect.)
[2023-06-05 15:29] LABS: HCV Log PCR <1.18 NOT DETECTED Log IU/mL (NOT DETECTED); HepC Viral Load <15 NOT DETECTED IU/mL (NOT DETECTED)
== END 2023-06-01 13:06 | disposition home or self-care (01) ==
LOC: HO.HHCL 13:05
PROVIDERS: Visit Provider Student in an Organized Health Care Education/Training Program
DX: Z00.00 Encounter for general adult medical examination without abnormal findings (principal)
CPT/HCPCS: 0353U; 36415; 80053; 80061; 82043; 82306; 82570; 82728; 83036; 83540; 84443; 85027; 86704; 86706; 86780; 86803; 87340; 87389; 87522

== ENCOUNTER 2023-06-20 09:42 | Outpatient (REF) | payer MEDICAID, SELFPAY ==
--- NOTE | ~2023-06-20 | MM_ITS ---
EXAMINATION: MM DIAGNOSTIC DIGITAL BREAST TOMOSYNTHESIS, BILATERAL CLINICAL INFORMATION: The patient had a baseline mammogram on 07/05/2021. At that time, additional imaging was recommended. The patient had diagnostic mammography on 01/17/2022 which showed a probably benign focal asymmetry in the upper outer quadrant of the right breast which was unchanged. In the interval, the patient has been was unable to return for the additional imaging. Now returns for bilateral mammography. COMPARISON: Mammography: This study is compared with previous mammographic imaging dating back to 2021. TECHNIQUE: Digital breast tomosynthesis is performed in both the craniocaudal and mediolateral oblique views along with computer-aided detection (CAD). Synthesized 2D images are generated from the tomosynthesis. FINDINGS: There are scattered areas of fibroglandular density (ACR BI-RADS breast composition Category b). There are no significant masses, abnormal calcifications, or other abnormalities. This been no interval change in the upper outer quadrant focal asymmetry which has the appearance of a normal intramammary lymph node. There are no mammographic signs of malignancy in either breast. MM/MM tomosynthesis diagnostic BI IMPRESSION: There are no significant changes from prior study. ASSESSMENT: BI-RADS BI-RADS 1 - Negative RECOMMENDATION: 1 year F/U Results were provided to the patient at time of visit by the technologist. This patient's information was entered into a reminder system with a target due date for their next mammogram.
== END 2023-06-20 09:43 | disposition home or self-care (01) ==
LOC: HO.MAMMO 09:42
PROVIDERS: Visit Provider Student in an Organized Health Care Education/Training Program
DX: Z12.31 Encounter for screening mammogram for malignant neoplasm of breast (principal)
CPT/HCPCS: 77062; 77063; 77066; 77067

== ENCOUNTER → 2023-06-20 10:15 | Outpatient (BNV) | payer MEDICAID, SELFPAY | PROVIDERS: Visit Provider Radiology Diagnostic Radiology | DX: R92.323 Mammographic fibroglandular density, bilateral breasts (principal) | CPT/HCPCS: 77062; 77066 ==

== ENCOUNTER 2023-08-14 12:24 | Outpatient (REF) | payer MEDICAID, SELFPAY ==
--- NOTE | ~2023-08-14 | US_ITS ---
EXAMINATION: US PELVIS COMPLETE CLINICAL INFORMATION: Menorrhagia, fibroid COMPARISON: Pelvic ultrasound 09/09/2022 TECHNIQUE: Transabdominal and transvaginal imaging was performed. FINDINGS: The uterus measures 14.6 x 5.9 x 7.6 cm. And is heterogeneous and enlarged A regular homogeneous endometrium is identified measuring 1.1 cm. A 2.6 cm intramural myoma in the posterior body of the uterus previously 3.2 cm and a 1.3 cm intramural myoma in the the left body of the uterus, previously 1.5 cm. Small volume of fluid in the endocervical canal. Nabothian cysts in the cervix. Both ovaries are of normal size and echogenicity. The right measures 3.9 x 1.5 x 2.6 cm for a volume of 8 mL. The left measures 2.6 x 2.0 x 2.6 cm for a volume of 7.1 mL. There is no pelvic free fluid. US/US pelvic and transvaginal IMPRESSION: 1. Enlarged heterogeneous uterus which can be seen in the setting of adenomyosis with 2 intramural myomas measuring up to 2.6 cm as detailed above. 2. Small volume of fluid in the endocervical canal. 3. Unremarkable sonographic appearance of the ovaries.
== END 2023-08-14 12:25 | disposition home or self-care (01) ==
LOC: HO.US 12:24
PROVIDERS: Visit Provider Student in an Organized Health Care Education/Training Program
DX: N92.4 Excessive bleeding in the premenopausal period (principal)
CPT/HCPCS: 76830; 76856

== ENCOUNTER 2023-09-03 08:16 | Outpatient (REF) | payer MEDICAID, SELFPAY ==
--- NOTE | ~2023-09-03 | XR_ITS ---
EXAMINATION: XR FOOT, RIGHT CLINICAL INFORMATION: Displaced fracture fifth metatarsal. COMPARISON: None available. TECHNIQUE: AP, lateral, and oblique views of the right foot. FINDINGS: There is mild hallux valgus. There is cystic change along the medial head of the first metatarsal which could reflect a subchondral cyst or enthesopathic cyst. There is mild soft tissue prominence medial to the head of the first metatarsal and first metatarsophalangeal joint. Fifth metatarsal appears intact other than enthesopathic cyst along the lateral base of the head neck junction. Remaining bones, joints and soft tissues are unremarkable except for small calcaneal spurs. XR/XR foot RT min 3V IMPRESSION: 1. Mild hallux valgus. 2. Small cystic change along the medial head of the first metatarsal more likely enthesopathic than subchondral cystic. Additional cystic change along the head neck junction of the fifth metatarsal most likely enthesopathic at the capsular attachment. Joint normal. 3. Mild soft tissue prominence medial to the head of the first metatarsal and first metatarsophalangeal joint. This is nonspecific but could reflect edema or cellulitis. Tophi related to gout can also have this appearance. However. No definite radiographic signs of gout detected.
== END 2023-09-03 08:17 | disposition home or self-care (01) ==
LOC: HO.HOSX 08:16
PROVIDERS: Visit Provider Physician Assistant
DX: S92.351D Displaced fracture of fifth metatarsal bone, right foot, subsequent encounter for fracture with routine healing (principal); S93.601D Unspecified sprain of right foot, subsequent encounter; W19.XXXD Unspecified fall, subsequent encounter
CPT/HCPCS: 73630; 99202

== ENCOUNTER 2023-09-03 09:46 | Outpatient (AMB) | payer OTHER, MEDICAID, SELFPAY ==
[2023-09-03 10:46] VITALS: BMI 50.8
--- NOTE | 2023-09-03 10:46 | A.OFFVIS_ITS ---
Vital Signs 09/03/23 10:46 Height 5 ft 8 in Weight 334 lb BMI 50.8 Intake Visit Reasons: WC- Right Great Toe Injury Intake Note: Jennifer is a 43 year old female, right hand dominant, who presents as a new patient for a right great toe workers comp injury, DOI 08/03/23. Patient fell at work. Patient reports the pain is only present with some movements, when applying pressure, and ambulation. Reports her right foot starts throbbing with prolonged walking. Toe also turns red. 8 on the 0-10 pain scale, when pain is present. She is using a cream for the pain with no relief. Instrumentation Chemist Required: No Accompanied by: Self / Same As Patient Allergies morphine Allergy (Severe, Verified 09/03/23 10:49) hives HPI HPI WC- Right Great Toe Injury: Details: 43-year-old female who presents to the office today for evaluation of right great toe injury after a fall at work while going downstairs. 08/03/23. She reports she has a throbbing pain, redness and popping in her foot with prolonged walking and rates the pain as 8 on the scale of 0-10. She experiences pain with ambulation, applying pressure and with certain movements. Her pain is aggravated at the end of the day. She has been using a pain cream with no relief. She has not had physical therapy in the past. 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 Review of Systems Const All systems reviewed & are unremarkable except as noted in HPI and below Physical Exam Vital Signs: BMI result Body Mass Index 50.8 Const General: cooperative, healthy appearing, comfortable, no acute distress, well de veloped and alert Orientation/consciousness: patient oriented x3 HEENT Head: Yes normal to inspection, Yes normocephalic and Yes atraumatic Eyes General: appearance normal, both eyes and all related structures Resp Effort & Inspection: normal respiratory effort and able to speak in complete sentences Cardio Rate: regular rate Peripheral pulses: Peripheral pulses 2+ throughout GI Palpation (GI): Soft to palpation Skin Lesions: no lesions Rashes: no rashes Neuro General: patient oriented x3 Extrem Other: Right foot: Normal to inspection. She has no tenderness over top of toe. No pain Lis franc area. EHL is intact. She has discomfort along the bottom of her foot in line of the pad of great toe. She also has weakness with plantar flexion of great toe. NVI. Results Reviewed Results Reviewed: Xrays were obtained in the office today and personally reviewed by me of the right foot are negative for acute fracture or dislocation Assessment & Plan Assessment & Plan (1) Right foot sprain: Code(s): S93.601A - Unspecified sprain of right foot, initial encounter Category: Medical Plan She will return to work with restrictions which include alternate sitting and standing until I see her back for reevaluation. She was also given a course of physical therapy and an MRI of right foot to further evaluate the source of her pain. Once the scan is complete, she will see me back to discuss the results. Orders: Orders PT Evaluation and Treatment Today S93.601A - Unspecified sprain of right foot, initial encounter XR foot RT min 3V Today S92.351A - Displaced fracture of fifth metatarsal bone, right foot, initial encounter for closed fracture Patient Instructions: Scribed for Caryl Martinez PA-C, by Russell Shay medical fee clerk, on 09/03/2023 at 11:00 AM EST. ICaryl PA-C, have personally reviewed and agree with the information entered by the scribe. Coding Level of Care Code New Pt Level 3 (36131) Diagnoses Right foot sprain S93.601A
== END 2023-09-03 11:16 | disposition home or self-care (01) ==
PROVIDERS: Visit Provider Physician Assistant
DX: S93.601A Unspecified sprain of right foot, initial encounter (principal)
CPT/HCPCS: 99203

== ENCOUNTER 2023-10-05 08:00 | Outpatient (RCR) | payer OTHER, MEDICAID, SELFPAY ==
--- NOTE | 2023-09-19 09:47 | MHC.PT.EP ---
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 SHE IS LIMITED W STANDING, WALKING, Wt BEARING THRU RT GREAT TOE, SQUATTING, AND STAIR NAVIGATION. OBJECTIVELY, THE Pt HAS KEVAN GREAT TOE HALLUX VALGUS/ BUNIONS, DECR ANKLE FLEXIB, PAIN Rt MET HEAD, AND WEAKNESS IN Rt GREAT TOE EXTENSION. SHE WOULD BENEFIT FROM PT TO ADDRESS MECHANICAL AND SOFT TISSUE FINDINGS, PAIN MGMT, AND DEV A HEP TO ADDRESS INCR FUNCTIONAL MOB. Frequency and Duration: The patient will be seen 2 x WK x 4 WKS Short Term Goals: *DECR Rt GREAT TOE PAIN TO 2-3/10 *INITIATE HEP *IMPROVE ANKLE FLEXIB *ACTIVATE DF, EHL Retail Agent Goals: *INDEP W HEP AND SELF SX MGMT TECHN *Pt RESUME REG ADLs AND FITNESS ROUTINE-> IMPROVE LEFI (39/80 AT EVAL) *Pt DEMON EFFICIENT GAIT MECH ON LEVEL GROUND AND STAIRS Treatment Plan: Modalities to reduce pain, spasms and effusion. Manual therapy to restore motion and function. Therapeutic exercise to improve strength and flexibility. Neuromuscular re-education for posture and balance. Therapeutic activities to return to functional activities of daily living. Electronically signed by: JOSEPHINE BOO,PT Please sign and return to therapist. Thank you for your referral.
--- NOTE | 2023-11-30 13:09 | MHC.PT.DC ---
[facility] [place] Office [place] Office [place] Office [address] [phone] F: [phone] F: [phone] F: [phone] F: [phone] Physical Therapy Discharge Report Diagnosis: RIGHT FOOT SPRAIN Date of Surgery: Date of Evaluation: 09/19/23 Date of Discharge: 11/30/23 Treatments to Date: 4 Cancellations to Date: 2 No Shows to Date: 1 Discharge Status: Improved Function Independent with HEP Patient Elected to Stop Discharge Summary: AT [facility]'S LAST ATTENDED PT APPT THE Pt HAD IMPROVED AWARENESS RE MECHANICAL TISSUE INFLUENCE W HALLUX VALGUS TENDENCIES AND INCREASED FUNCT MOB TOLERANCE. A FORMAL REASSESSMENT WAS NOT PERFORMED THE Pt DID NOT SHOW FOR HER LAST FEW SCHED APPTS. Electronically signed by: JOSEPHINE BOO,PT Please sign and return to therapist. Thank you for your referral.
== END 2023-11-30 13:12 | disposition home or self-care (01) ==
LOC: HO.PT 08:00
PROVIDERS: PCP Student in an Organized Health Care Education/Training Program; Visit Provider Physician Assistant
DX: S93.601D Unspecified sprain of right foot, subsequent encounter (principal)
CPT/HCPCS: 97035; 97110; 97140; 97162

== ENCOUNTER 2023-11-16 13:30 | Outpatient (REF) | payer OTHER, MEDICAID, SELFPAY ==
[2023-11-16 16:12] LABS: MANUAL DIFF FLAG NO
[2023-11-16 16:16] LABS: Basophils Percent Auto 0.3 % (0-2); Eosinophils Absolute Auto 0.1 X10*3/uL (0.0-0.4); Eosinophils Percent Auto 1.7 % (0-4); Hematocrit 35.1 % (37.0-47.0); Hemoglobin 10.8 g/dl (12.0-16.0); Imm Gran Abs Auto 0.03 X10*3/uL (0.00-0.03); Imm Gran Pct Auto 0.4 % (0.0-0.4); Lymphocytes Absolute Auto 1.9 X10*3/uL (1.2-4.9); Lymphocytes Percent Auto 23.9 % (20-40); Mean Corpuscular HGB Conc 30.8 g/dl (31.0-35.0); Mean Corpuscular Hemoglobin 23.7 pg (27.0-33.0); Mean Corpuscular Volume 77.1 fL (80.0-98.0); Mean Platelet Volume 11.4 fL (9.4-12.3); Monocytes Absolute Auto 0.5 X10*3/uL (0.1-1.2); Neutrophils Absolute Auto 5.3 x10*3/uL (2.0-8.3); Neutrophils Percent Auto 67.7 % (45-73); Platelet Count 247 X10*3/uL (160-400); Red Blood Count 4.55 X10*6/uL (4.20-5.50); Red Cell Distribution Width 20.7 % (11.0-16.0); White Blood Count 7.9 X10*3/uL (4.8-10.8)
[2023-11-17 01:29] LABS: Iron 34 mcg/dL (30-160); Percent Iron Saturation 12 % (15-50); Total Iron Binding Capacity 282 mcg/dL (228-428); Unsaturated Iron Binding 248 ug/dL
[2023-11-17 01:53] LABS: Ferritin 17 ng/mL (10-250)
== END 2023-11-16 13:31 | disposition home or self-care (01) ==
LOC: HO.HHCL 13:30
PROVIDERS: Visit Provider Student in an Organized Health Care Education/Training Program
DX: D50.9 Iron deficiency anemia, unspecified (principal)
CPT/HCPCS: 36415; 82728; 83540; 85025

== ENCOUNTER 2024-01-17 15:05 | Outpatient (AMB) | payer OTHER, MEDICAID, SELFPAY ==
--- NOTE | 2024-01-17 15:00 | A.OFFVIS_ITS ---
Intake Visit Reasons: TH-MRI review of right foot Allergies morphine Allergy (Severe, Verified 09/03/23 10:49) hives HPI HPI TH-MRI review of right foot: Details: 43 yo female presents for telehealth visit MRI f/u right foot. She states there has been some improvement but she continues to have a firm nodule on the bottom of the foot that does cause some pain. 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 Review of Systems Const All systems reviewed & are unremarkable except as noted in HPI and below Physical Exam Resp Effort & Inspection: normal respiratory effort and able to speak in complete sentences Telehealth Telehealth Telehealth Platform: Telephone Location of provider rendering services: practice address Location of patient: address on file Patient Identification confirmed using: Name, : Yes Telehealth method: voice only Patient verbally consented to treatment: Yes Patient verbally consented to billing insurance company: Yes Patient informed of any privacy concerns related to visit: Yes Minutes spent on Phone/Video with Pt.: 10 Results Reviewed Results Reviewed: Assessment & Plan Assessment & Plan (1) Right foot sprain: Code(s): S93.601A - Unspecified sprain of right foot, initial encounter Category: Medical (2) Hematoma of toe of right foot: Code(s): S90.121A - Contusion of right lesser toe(s) without damage to nail, initial encounter Category: Medical Plan Discussed findings on the MRI. I explained the nodule she feels is likely the hematoma. I recommend finding something OTC to use as cushion to take some of the pressure off the area. I recommend PT for stretching, rom and strength if interested, but she would like to hold off for now. She will contact me if there are any concerns. Coding Level of Care Code Tele Est Pt Level 3 (83296) Complex EM visit Add On G2211 Diagnoses Right foot sprain S93.601A Hematoma of toe of right foot S90.121A
== END 2024-01-17 15:07 | disposition home or self-care (01) ==
LOC: HO.HOS 15:05
PROVIDERS: PCP Student in an Organized Health Care Education/Training Program; Visit Provider Physician Assistant
DX: S93.601A Unspecified sprain of right foot, initial encounter (principal); S90.121A Contusion of right lesser toe(s) without damage to nail, initial encounter
CPT/HCPCS: 99213; G2211

== ENCOUNTER → 2024-01-17 15:05 | Outpatient (BNVA) | payer OTHER, MEDICAID, SELFPAY | PROVIDERS: PCP Student in an Organized Health Care Education/Training Program; Visit Provider Physician Assistant ==

== ENCOUNTER 2024-03-05 09:21 | Emergency (ER) | payer OTHER, SELFPAY ==
--- NOTE | ~2024-03-05 | CT_ITS ---
EXAMINATION: CT ABDOMEN AND PELVIS WITHOUT CONTRAST CLINICAL INFORMATION: Left-sided upper abdominal pain. COMPARISON: None available. TECHNIQUE: Multidetector volumetric imaging was performed from the superior aspect of the liver through the pubic symphysis. Sagittal and coronal reformatted images were obtained on the technologist's workstation. This CT examination was performed using dose optimization techniques as appropriate, variously including the following: *Automated exposure control *Adjustment of mA and/or kV according to patient size (this includes techniques or standardized protocols for targeted exams where dose is matched to indication/reason for exam; i.e. extremities or head) *Use of iterative reconstruction technique DLP: 963 mGy-cm FINDINGS: Limited evaluation of the intra-abdominal organs and vascular structures due to lack of IV contrast. LUNG BASES: No acute airspace disease or pulmonary nodules in the included lung bases. LIVER, GALLBLADDER, AND BILIARY TREE: Liver measures 16 cm. No intrahepatic biliary ductal dilatation. No pericholecystic fluid collection or gallbladder wall thickening. Common bile duct measures 3 mm. PANCREAS: No peripancreatic fluid collections. No main pancreatic ductal dilatation. SPLEEN: Measures 10 cm. ADRENAL GLANDS: No nodular lesions. KIDNEYS AND URETERS: No hydronephrosis. No nephrolithiasis. BLADDER: Fluid-filled. GASTROINTESTINAL TRACT: No intestinal obstruction pattern. No pneumoperitoneum. No ascites. No pneumatosis intestinalis. Abundant stool. Terminal ileum is normal. I do not see the appendix. No pericecal edema pattern. ABDOMINAL WALL: Fat-containing and fluid-filled hernias in the umbilical and right midline shift umbilical. LYMPH NODES: No gross lymphadenopathy. VASCULAR: No aneurysm, abdominal aorta. . OSSEOUS STRUCTURES: Multilevel lower thoracic and lower lumbar spondylosis. No acute fracture or listhesis. Sclerosis and vacuum phenomenon both sacroiliac joints. CT/CT abdomen pelvis wo IV con IMPRESSION: Fat and fluid-filled umbilical and right midline umbilical hernias. Fleischner guidelines were followed. Electronically signed by: Caesar Gu MD 03/05/2024 02:12 PM ESTHER BUI
--- NOTE | ~2024-03-05 | XR_ITS ---
EXAMINATION: XR CHEST CLINICAL INFORMATION: Cough COMPARISON: None available. TECHNIQUE: Frontal view of the chest was obtained. FINDINGS: Lungs grossly clear given portable technique. Heart size normal with normal caliber pulmonary vessels. XR/XR chest 1V IMPRESSION: No active disease. Electronically signed by: Hamilton Grande MD 03/05/2024 11:01 AM [facility]
[2024-03-05 09:49] VITALS: BP 146/66; PULSE 78; RESP 16; TEMP 36.6; O2SAT 99; BMI 52.1
[2024-03-05 10:29] LABS: IDNOW Serial# 08D9AD1C; Strep A Nucleic Acid Negative (Negative)
[2024-03-05 11:03] LABS: Influenza A PCR NEGATIVE (Negative); Influenza B PCR NEGATIVE (Negative); Resp Syncy Virus RNA Qual PCR NEGATIVE (Negative); SARS COV2 PCR INHOUSE NEGATIVE (Negative)
[2024-03-05 12:18] LABS: UPreg QC Valid YES; Urine Pregnancy NEGATIVE (NEGATIVE)
[2024-03-05 12:20] LABS: Appearance Urine Cloudy; Glucose Urine UA Negative (Negative); Leukocyte Esterase Urine Small (1+) (Negative); Nitrite Urine Negative (Negative); PH 5.5 (5.0-9.0); Specific Gravity - Urine >= 1.030 (1.005-1.025); UMIC TRIGGER UACC YES; Urine Blood Large (3+) (Negative); Urine Ketones Negative (Negative); Urine Protein 100 (2+) mg/dL (Neg-Trace)
[2024-03-05 12:21] LABS: Color Urine Dark Yellow
[2024-03-05 12:37] VITALS: BP 146/91; PULSE 64; RESP 16; TEMP 36.6; O2SAT 99
[2024-03-05 12:38] LABS: Bacteria Urine None Seen (None Seen); Hyaline Casts Urine 0-2 /LPF (0-2); RBC Urine >20 /HPF (0-2); Squamous Epithelial Cell Urine 0-2 /HPF (0-2); UACC Culture Trigger YES; WBC Urine 0-5 /HPF (0-5)
--- NOTE | 2024-03-05 13:34 | ED_ITS ---
HPI - General Adult General Chief complaint: General Medical Stated complaint: l flank/back pain/swelling Time Seen by Provider: 03/05/24 11:17 Source: patient Mode of arrival: ambulatory Limitations: no limitations History of Present Illness ED Provider: Brandon Jeronimo PA-C HPI narrative: 43 yold female with no pmh presents to the ED for dry coughing and sore throat for the past two weeks. Patient's secondary complaint is left upper abdominal flank bulging everytine she coughs which began since this past sunday. Patient denies any recent trtauma. Patient denies any dysuria or hematuria. Patient is on menstruation. Patient states no constipation or recent trauma. Patient states left upper quadrant pain only hurts when she coughs but sees bulge when she coughs. Related Data Home Medications ?Medication ?Instructions ?Recorded ?Confirmed vitamin with calcium 1 tab PO QAM 09/11/22 no.72-iron 27 mg-folic acid 1 mg tablet ( Vitamins Plus Low Iron) Previous Rx's ?Medication ?Instructions ?Recorded benzonatate 200 mg capsule 200 mg PO TID PRN cough 5 days #15 03/05/24 caps naproxen 500 mg tablet 500 mg PO BID PRN pain 7 days #14 03/05/24 tabs Allergies Allergy/AdvReac Type Severity Reaction Status Date / Time morphine Allergy Severe hives Verified 03/05/24 09:52 Review of Systems Review of Systems: Coughing, sore throat and left upper abdominal bulge when she coughs Yes all other systems are reviewed and are negative PMFSH Past Medical History Surgical History (Updated 09/03/23 @ 10:50 by THIERNO Simpson) Hx of section Social History Social History (Updated 09/03/23 @ 10:50 by THIERNO Simpson) Alcohol intake: current Alcohol intake frequency: holidays/special occasions only Patient Tobacco Use Status: Never used Tobacco 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, 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 Physical Exam ED Vital Signs: Vital Signs - 24 hr 03/05/24 09:49 03/05/24 12:37 03/05/24 15:16 Temperature 97.9 F 97.9 F 98.0 F Pulse Rate 78 64 73 Respiratory Rate 16 16 16 Blood Pressure 146/66 H 146/91 H 141/88 H Pulse Oximetry 99 99 97 Oxygen Delivery Method Room Air Room Air Room Air BMI result Body Mass Index 52.1 Const General: cooperative, healthy appearing, comfortable, no acute distress, well developed, alert, awake and Physically active Orientation/consciousness: patient oriented x3 [facility] Head: Yes normal to inspection, Yes No palpable skull fracture present, Yes normocephalic and Yes atraumatic Ears: hearing grossly normal bilaterally, external ears normal, TM's normal bilaterally, TM normal on the right, TM normal on the left, EAC's normal, mastoids normal and no periauricular adenopathy Throat: Yes posterior oropharynx normal, Yes tonsils normal and Yes uvula midline Eyes General: appearance normal, both eyes and all related structures Neck Neck: Yes normal visual inspection, Yes full ROM, Yes no lymphadenopathy, Yes no meningeal signs, Yes trachea midline, Yes supple, No anterior neck swelling and No tender Chest Chest palpation & inspection: normal inspection of the chest and normal palpation of entire chest wall Resp Effort & Inspection: normal respiratory effort and able to speak in complete sentences Auscultation: clear to auscultation bilaterally Cardio Jugular venous distension: no JVD Heart sounds: S1 normal heart sound present and S2 normal heart sound present GI Inspection: Yes normal to inspection Palpation (GI): Soft to palpation, not firm, Tenderness to palpation present (GI) in the LUQ (tenderness. No obvious bulge. pain on movement.), no guarding and not rigid General: No CVA tenderness and Yes no CVA tenderness Back/Spine/Pelvis Back: no CVA tenderness, No CVA tenderness and No back tenderness Skin General skin exam: no rashes or lesions noted, elasticity normal and turgor normal Neuro General: patient oriented x3, gait normal, tone normal, moves all extremities, Normal light touch and pain sensation, no meningeal signs, no focal motor deficits, CN's II-XI intact bilaterally and normal sensation to monofilament Extrem General: Yes normal to inspection, Yes full ROM and Yes capillary refill normal Psych Appearance: grossly normal, well kempt and not disheveled Medical Decision Making Medical Decision Making MDM Narrative: [age] old female presents to ED for URI symptoms for 2 weeks and now erythema she coughs she feels a bulge left upper quadrant and pain on range of motion. Patient denies any chest pain or shortness of breath. RSV COVID influenza strep negative. Chest x-ray negative. UA negative for . UA shows blood due to patient being on menstruation. CT scan ordered. 2:30pm: Patient's CT scan does not show any mass hernia or bulging in left upper quadrant flank area. Does show umbilical and right midline hernia. Not suspecting incarcerated hernia. Probably left upper abdominal flank pain on movement is muscular due to coughing. Patient informed to follow up with primary care provider. Patient explained worrisome signs and informed to return to the ED immediately. Not suspecting PE, myocardial infarction, CHF, aortic dissection, renal artery thrombus, UTI, kidney stone, pyelonephritis, cauda equinus, epidural abscess, incarcerated hernia, or any other concerning life threatening etioloiges. Differential Diagnosis Differential Diagnoses: The differential diagnosis associated with the presentation includes (Pneumonia, SARS, strep, COVID hernia muscle spasm muscle strain) Admission/Observation Consideration of admission/observation: Escalation of care including admission/observation considered Lab Data MDM Lab Attestation statement: I reviewed the patient's lab results. Labs: Lab Results 03/05/24 03/05/24 Range/Units 10:10 12:01 Urine Color Dark Yellow Urine Appearance Cloudy Urine pH 5.5 (5.0-9.0) Ur Specific [place] >= 1.030 H (1.005-1.025) Urine Protein 100 (2+) H (Neg-Trace) mg/dL Urine Glucose (UA) Negative (Negative) mg/dL Urine Ketones Negative (Negative) mg/dL Urine Blood Large (3+) H (Negative) Urine Nitrite Negative (Negative) Ur Leukocyte Esterase Small (1+) H (Negative) Urine RBC >20 H (0-2) /HPF Urine WBC 0-5 (0-5) /HPF Ur Squamous Epith Cells 0-2 (0-2) /HPF Urine Bacteria None Seen (None Seen) Hyaline Casts 0-2 (0-2) /LPF Urine Test NEGATIVE (NEGATIVE) Influenza Type A (PCR) NEGATIVE (Negative) Influenza Type B (PCR) NEGATIVE (Negative) RSV RNA Qual (PCR) NEGATIVE (Negative) SARS-CoV-2 RNA (RT-PCR) NEGATIVE (Negative) S. pyogenes GrpA KONG Negative (Negative) Independent Interpretation I performed an independent interpretation of an: Plain X-Ray and CT Scan Radiology Impression Discussion of test interpretation with radiology: I have reviewed the radiologist's reading. (patient) Independent Historian Clinical information obtained from an independent historian. History obtained from or confirmed by: Other (patinet) External Record Review External record reviewed: Other (prior vists) Prescription Management I considered prescription management with: Pain Medication Discharge Plan Discharge Clinical Impression: URI (upper respiratory infection), Strain of abdominal wall, Hernia, umbilical Patient Disposition: Home, Self-Care Instructions: Muscle Strain (ED), Upper Respiratory Infection (ED), Umbilical Hernia (ED) Additional Instructions: Recommend follow up with PCP. Return to the ED immediately chest pain, shortness of breath, abdominal pain, nausea, vomitting, flank pain, coughing up blood hematuria, dysuria, fever, chills, or any other concerning symptms. CT/CT abdomen pelvis wo IV con IMPRESSION: Fat and fluid-filled umbilical and right midline umbilical hernias. Fleischner guidelines were followed. Electronically signed by: Caesar Gu MD 03/05/2024 02:12 PM EST RP XR/XR chest 1V IMPRESSION: No active disease. Electronically signed by: Hamilton Grande MD 03/05/2024 11:01 AM EST RP Prescriptions: New benzonatate 200 mg capsule 200 mg PO TID PRN (Reason: cough) 5 Days Qty: 15 0RF naproxen 500 mg tablet 500 mg PO BID PRN (Reason: pain) 7 Days Qty: 14 0RF No Action Vitamin Plus Low Iron 27 mg iron- 1 mg tablet 1 tab PO QAM Referrals: [facility] [place] General Surgeons [Provider Group] ([place]) Stand Alone Forms: Work/School Release Interventions: ED Discharge Assessment Last Done: 03/05/24 15:16 Discharge Date/Time: 03/05/24 15:17 Print Language: Iranian
--- NOTE | 2024-03-05 14:30 | PC.NURSE ---
patient a&ox3, pt states she has mild pain in abd, upper resp symptoms. vitals previously stable, pt awaiting results of testing from provider.
[2024-03-05 15:16] VITALS: BP 141/88; PULSE 73; RESP 16; TEMP 36.7; O2SAT 97
== END 2024-03-05 15:17 | disposition home or self-care (01) ==
PROVIDERS: Physician Assistant; Emergency Provider Emergency Medicine; PCP Student in an Organized Health Care Education/Training Program
DX: J06.9 Acute upper respiratory infection, unspecified (principal); R05.9 Cough, unspecified; S39.011A Strain of muscle, fascia and tendon of abdomen, initial encounter; X50.9XXA Other and unspecified overexertion or strenuous movements or postures, initial encounter; K42.9 Umbilical hernia without obstruction or gangrene; Y93.89 Activity, other specified; Y92.9 Unspecified place or not applicable; Y99.9 Unspecified external cause status; Z03.818 Encounter for observation for suspected exposure to other biological agents ruled out
CPT/HCPCS: 0241U; 71045; 74176; 81001; 81025; 87086; 87651; 99283; 99284

== ENCOUNTER → 2024-03-05 12:41 | Outpatient (BNV) | payer OTHER, SELFPAY | PROVIDERS: Emergency Provider Emergency Medicine; PCP Student in an Organized Health Care Education/Training Program; Visit Provider Radiology Diagnostic Radiology | DX: R10.12 Left upper quadrant pain (principal) | CPT/HCPCS: 74176 ==

== ENCOUNTER 2024-03-18 08:49 | Outpatient (AMB) | payer OTHER, SELFPAY ==
--- NOTE | 2024-03-18 09:22 | MHC.OFFVIS ---
Vital Signs 03/18/24 09:36 Height 5 ft 8.5 in Weight 340 lb BMI 50.9 Pulse 72 Intake Visit Reasons: Umbilical hernia Intake Note: Patient is seen in office for ER follow up visit, following umbilical hernia. Pt c/o: went to ED due to rib pain and was told she has a hernia, does not feel a lump or any concerns in the area, denies n/v/d/c, her pain is under the ribs ER/CT: 03/05/24 Community Advocate Required: No Accompanied by: Self / Same As Patient Allergies morphine Allergy (Severe, Verified 03/18/24 09:33) hives HPI Comments Details: 43-year-old female patient presenting with a recent upper respiratory infection resulting in coughing episodes. Patient subsequently developed pain in the left lower ribcage and left upper quadrant. She was evaluated in the emergency department on 03/05/2024. She was noted to be tender in the left upper quadrant and subsequently underwent evaluation with chest x-ray and CT abdomen and pelvis. No hernia could be identified in the left upper quadrant however a small umbilical hernia was identified. Patient denies any symptoms in the umbilicus and has never felt any lump the site. 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 She denies nausea, vomiting, fevers, chills, diarrhea or constipation. She denies a previous history of hernia surgeries. 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 Review of Systems Const All systems reviewed & are unremarkable except as noted in HPI and below Physical Exam Const General: cooperative and no acute distress Nutritional Appearance: well nourished Orientation/consciousness: patient oriented x3 Limitations: no limitations HEENT Head: Yes normocephalic and Yes atraumatic Ears: hearing grossly normal bilaterally Resp Effort & Inspection: normal respiratory effort, no audible wheezes, no cough and no respiratory distress Cardio Jugular venous distension: no JVD GI Inspection: Yes normal to inspection and Yes obesity Palpation (GI): Soft to palpation, nontender, no guarding, not rigid and no hernias (No palpable umbilical hernia noted with Valsalva maneuvers, no tenderness) Skin Other: Warm, dry, no rash Neuro General: patient oriented x3 Extrem General: Yes no clubbing, cyanosis or edema Assessment & Plan Assessment & Plan (1) Hernia, umbilical: Code(s): K42.9 - Umbilical hernia without obstruction or gangrene Category: Medical Qualifiers: Obstruction and gangrene presence: without obstruction or gangrene Qualified Code(s): K42.9 - Umbilical hernia without obstruction or gangrene Plan 43-year-old female patient incidentally noted to have an umbilical hernia while being worked up for left upper quadrant abdominal pain and cough. The pain is now improved as is her cough. She denies any symptoms in the umbilicus and on examination no definite hernia could be identified. The hernia was identified on CT abdomen and pelvis however. Given her lack of symptoms and no significant palpable hernia on examination I suggested observation at this time. I suggested she avoid lifting greater than 20 lb. We discussed the symptoms to be aware of she agreed to call our office should these develop. She will follow-up as needed. Coding Level of Care Code New Pt Level 4 (47731) Diagnoses Umbilical hernia without obstruction and without gangrene K42.9 Obstruction and gangrene presence: without obstruction or gangrene
[2024-03-18 09:36] VITALS: PULSE 72; BMI 50.9
== END 2024-03-18 10:02 | disposition home or self-care (01) ==
PROVIDERS: PCP Student in an Organized Health Care Education/Training Program; Visit Provider Surgery
DX: K42.9 Umbilical hernia without obstruction or gangrene (principal)
CPT/HCPCS: 99204

== ENCOUNTER → 2024-03-18 08:49 | Outpatient (BNVA) | payer OTHER, SELFPAY | PROVIDERS: PCP Student in an Organized Health Care Education/Training Program; Visit Provider Surgery | DX: K42.9 Umbilical hernia without obstruction or gangrene (principal) | CPT/HCPCS: 99202 ==

== ENCOUNTER 2024-06-25 09:45 | Outpatient (REF) | payer OTHER, SELFPAY ==
--- OUTSIDE RECORDS SUMMARY | 2024-06-25 11:22 | XMS_ITS | Encounter Summary ---
Author Organization [employer] Address [address] [place] [address] Care Team Providers Care Sebd Teacher Name Role Phone Lupe Nolen MD Primary Care Pro vider Encounter Details Date Type Department Care Team (Late st Contact Info) Description 05/27/2024 8:40 AM EST Office Visit [facility] [address] [place] [address] Richard Pedroza MD [address] [place] [address] Influenza A (Primary Dx); Mild intermittent asthma with acute exacerbation; Elevated blood pressure reading in office without diagnosis of hypertension; WOODRUFF (dyspnea on exertion) Social History Tobacco Use Types Packs/Day Years Used Date Smoking Tobacco: Never Passive Smoke Exposure: Never Smokeless Tobacco: Never Alcohol Use Standard Drinks/Week Comments Yes 0 (1 standard drink = 0.6 oz pur e alcohol) social Depression Answer Date Recorded Patient Health Questionnaire-9 Score 7 06/01/2023 Patient Health Questionnaire-9 Score 7 06/01/2023 Last PHQ-9: Questionnaire Data Not on file 0 06/01/2023 Housing Stability Answer Date Recorded What is your housing situation today? I have justin costa 06/01/[address] you li ve. Do you have problems with any of the following? None of the above 06/01/2023 Food Insecurity Answer Date Recorded Within the past 12 months, y ou worried that your food would run out before you got money to buy more: Never True 06/01/2023 Within the past 12 months,th e food you bought just didn't last and you didn't have enough money to get more: Never True 05/2023 Transportation Answer Date Recorded In the past 12 months, has l ack of transportation kept you from medical appts, meetings, work or from getting things needed for daily living? No 06/01/2023 Utilities Answer Date Recorded In the past 12 months, has t he electric, gas, oil or water company threatened to shut off services in your home? No 06/01/2023 Depression Answer Date Recorded Patient Health Questionnaire-2 Score 1 06/01/2023 Comments No Sex and Gender Information Value Date Recorded Sex Assigned at Female 02/27/2022 10:39 AM EDT Legal Sex Female 10:39 AM EDT Gender Identity Female 02/27/2022 10:39 AM EDT Sexual Orientation Straight 02/27/2022 10 :39 AM EDT documented as of this encounter Last Filed Vital Signs Vital Sign Reading Time Taken Comments Blood Pressure 134/82 05/27/2024 9:25 AM EST Pulse 112 05/27/2024 8:52 AM EST Temperature 36.8 ??C (98.2 ??F) 05/27/2024 8:52 AM ES T Respiratory Rate 20 05/27/2024 8:52 AM EST Oxygen Saturation 97% 05/27/2024 8:52 AM EST Inhaled Oxygen Concentration - - Weight 151 kg (333 lb 3.2 oz) 05/27/2024 8:52 AM EST Height - - Body Mass Index 50.66 11/22/2023 9:33 AM EDT documented in this encounter Progress Notes * Richard Pedroza MD - 05/27/2024 8:40 AM EST Subjective Patient ID: Jennifer George is a 44 y.o. female. HPI Jennifer has 5 day h/o sneezing, tactile fevers, dry cough, wheezing, pain in ribs due to cough. No SOB, n/v/d. Using albuterol HFA 2x several days ago. Tried naproxen, Tylenol, Mireya-Justice. Lives with and 4 children. 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 LMP=now Never smoked. Patient Active Problem List Diagnosis Iron deficiency anemia Myopia of both eyes Severe obesity (CMS/HCC) Prediabetes Uterine leiomyoma Hypertension Encounter for preventive health examination Depression, unspecified Dental caries Fracture of root of tooth Vitamin D deficiency Knee pain Asthma Hernia of abdominal cavity The following portions of the chart were reviewed this encounter and updated as appropriate: Tobacco Allergies Meds Problems Med Hx Surg Hx Fam Hx Review of Systems Constitutional: Positive for fever. Respiratory: Positive for cough and wheezing. Negative for shortness of breath. Cardiovascular: Positive for chest pain. Gastrointestinal: Negative for abdominal pain. Skin: Negative for rash. Neurological: Negative for headaches. Objective Physical Exam Constitutional: Appearance: Normal appearance. HENT: Right Ear: Tympanic membrane, ear canal and external ear normal. Left Ear: Tympanic membrane, ear canal and external ear normal. Nose: Nose normal. Mouth/Throat: Mouth: Mucous membranes are moist. Pharynx: Oropharynx is clear. Eyes: Conjunctiva/sclera: Conjunctivae normal. Pupils: Pupils are equal, round, and reactive to light. Cardiovascular: Rate and Rhythm: Normal rate and regular rhythm. Heart sounds: No murmur heard. Pulmonary: Effort: Pulmonary effort is normal. Breath sounds: Wheezing (mild diffuse bilat expiratory) present. Musculoskeletal: General: Normal range of motion. Cervical back: No tenderness. Skin: Findings: No rash. Neurological: Mental Status: She is alert. Gait: Gait is intact. Psychiatric: Mood and Affect: Mood normal. Behavior: Behavior normal. Procedures Assessment/Plan Diagnoses and all orders for this visit: Influenza A + rapid Flu A test. Neg rapid Covid test. Prescribed acetaminophen, ibuprofen. Outside 48 hour window to prescribe Tamiflu. Given written Flu instructions. Rtc if not imptoving. - POCT Rapid COVID Ag - Influenza A (ID NOW Rapid Molecular) - Influenza B (ID NOW Rapid Molecular) Mild intermittent asthma with acute exacerbation Refilled albuterol HFA, prescribed chamber and prednisone. Advised to use albuterol q4h prn cough and/or wheezing. Rtc if not improving. Elevated blood pressure reading in office without diagnosis of hypertension Has home BP monitor. Reviewed BP parameters, given written BP log that includes BP parameters, to keep daily. Call if BP readings are elevated. WOODRUFF (dyspnea on exertion) - albuterol 108 (90 Base) MCG/ACT inhaler; Inhale 2 puffs every 6 (six) hours if needed for wheezing. Other orders - acetaminophen (Tylenol) 500 MG tablet; Take 2 tablets (1,000 mg) by mouth every 6 (six) hours if needed for moderate pain or fever for up to 25 doses. - ibuprofen 400 MG tablet; Take 1 tablet (400 mg) by mouth every 6 (six) hours if needed for moderate pain or fever for up to 30 doses. - predniSONE (Deltasone) 20 MG tablet; Take 2 tablets (40 mg) by mouth Once per day for 5 days. - Spacer/Aero-Holding Chambers (OptiChamber Tiffany) misc; 1 each every 4 (four) hours if needed (asthma). - cholecalciferol (Vitamin D-3) 50 MCG (1999 UT) capsule; Take 1 capsule (50 mcg) by mouth Once perday. documented in this encounter Miscellaneous Notes * Patient Education Note - Richard Pedroza MD - 05/27/2024 2:14 PM EST Images from the original note were not included. Patient Education Table of Contents Influenza, Adult To view videos and all your education online visit, [email or web address] or scan this QR code with your smartphone. Access to this content will in one year. Influenza, Adult Influenza is also called the flu. It's an infection that affects your respiratory tract. This includes your nose, throat, windpipe, and lungs. The flu is contagious. This means it spreads easily from person to person. It causes symptoms that are like a cold. It can also cause a high fever and body aches. What are the causes? The flu is caused by the influenza virus. You can get it by: Breathing in droplets that are in the air after an infected person coughs or sneezes. Touching something that has the virus on it and then touching your mouth, nose, or eyes. What increases the risk? You may be more likely to get the flu if: You don't wash your hands often. You're near a lot of people during cold and flu season. You touch your mouth, eyes, or nose without washing your hands first. You don't get a flu shot each year. You may also be more at risk for the flu and serious problems, such as a lung infection called pneumonia, if: You're older than 65. You're . Your immune system is weak. Your immune system is your body's defense system. You have a long-term, or chronic, condition, such as: ? Heart, kidney, or lung disease. ? Diabetes. ? A liver disorder. ? Asthma. You're very overweight. You have anemia. This is when you don't have enough red blood cells in your body. What are the signs or symptoms? Flu symptoms often start all of a sudden. They may last 4?14 days and include: Fever and chills. Headaches, body aches, or muscle aches. Sore throat. Cough. Runny or stuffy nose. Discomfort in your chest. Not wanting to eat as much as normal. Feeling weak or tired. Feeling dizzy. Nausea or vomiting. How is this diagnosed? The flu may be diagnosed based on your symptoms and medical history. You may also have a physical exam. A swab may be taken from your nose or throat and tested for the virus. How is this treated? If the flu is found early, you can be treated with antiviral medicine. This may be given to you by mouth or through an IV. It can help you feel less sick and get better faster. Taking care of yourself at home can also help your symptoms get better. Your health care provider may tell you to: Take [id number] medicines. Drink lots of fluids. The flu often goes away on its own. If you have very bad symptoms or problems caused by the flu, you may need to be treated in a hospital. Follow these instructions at home: Activity Rest as needed. Get lots of sleep. Stay home from work or school as told by your provider. ? Leave home only to go see your provider. ? Do not leave home for other reasons until you don't have a fever for 24 hours without taking medicine. Eating and drinking Take an oral rehydration solution (ORS). This is a drink that is sold at pharmacies and stores. Drink enough fluid to keep your pee pale yellow. Try to drink small amounts of clear fluids. These include water, ice chips, fruit juice mixed with water, and low-calorie sports drinks. Try to eat bland foods that are easy to digest. These include bananas, applesauce, rice, lean meats, toast, and crackers. Avoid drinks that have a lot of sugar or caffeine in them. These include energy drinks, regular sports drinks, and soda. Do not drink alcohol. Do not eat spicy or fatty foods. General instructions Take your medicines only as told by your provider. Use a cool mist humidifier to add moisture to the air in your home. This can make it easier for youto breathe. You should also clean the humidifier every day. To do so: ? Empty the water. ? Pour clean water in. Cover your mouth and nose when you cough or sneeze. Wash your hands with soap and water often and for at least 20 seconds. It's extra important to do so after you cough or sneeze. If you can't use soap and water, use hand mill helper. How is this prevented? Get a flu shot every year. Ask your provider when you should get your flu shot. Stay away from people who are sick during fall and winter. Fall and winter are cold and flu season. Contact a health care provider if: You get new symptoms. You have chest pain. You have watery poop, also called diarrhea. You have a fever. Your cough gets worse. You start to have more mucus. You feel like you may vomit, or you vomit. Get help right away if: You become short of breath or have trouble breathing. Your skin or nails turn blue. You have very bad pain or stiffness in your neck. You get a sudden headache or pain in your face or ear. You vomit each time you eat or drink. These symptoms may be an emergency. Call 911 right away. Do not wait to see if the symptoms will go away. Do not drive yourself to the hospital. This information is not intended to replace advice given to you by your health care provider. Make sure you discuss any questions you have with your health care provider. Document Released: 2001-04-13 Document Updated: 2024-01-17 Document Reviewed: 2023-05-24 Elsevier Patient Education ? 2023 [employer] documented in this encounter Plan of Treatment Upcoming Encounters Date Type Department Care Team (Late st Contact Info) Description 07/03/2024 10:00 AM EST Office Visit [facility] [address] [place] [address] Kurt Kirby, DMD [address] [place] [address] documented as of this encounter Procedures Procedure Name Priority Date/Time Associated Diagnosis Comments POCT INFLUENZA B (ID NOW RAPID MOLECULAR) Routine 05/27/2024 9:09 AM EST Influenza A POCT INFLUENZA A (ID NOW RAPID MOLECULAR) Routine 05/27/2024 9:09 AM EST Influenza A POCT RAPID COVID ANTIGEN Routine 05/27/2024 9:09 AM EST Influenza A documented in this encounter Results * Influenza B (ID NOW Rapid Molecular) (05/27/2024 9:09 AM EST) Influenza B Negative Negative, Indeterminate [facility] Swab 05/27/2024 9:09 AM EST us Richard Pedroza MD POINT OF CARE TEST ENTER/EDIT OR DERABLES Final Result [facility] [address] [place] [phone] * (ABNORMAL) Influenza A (ID NOW Rapid Molecular) (05/27/2024 9:09 AM EST) Influenza A Positive( A) Negative, Indeterminate [facility] Swab 05/27/2024 9:09 AM EST us Richard Pedroza MD POINT OF CARE TEST ENTER/EDIT OR DERABLES Final Result Performing Organization Address [facility]/ZIP Co de Phone Number [facility] [address] [place] [phone] * POCT Rapid COVID Ag (05/27/2024 9:09 AM EST) Rapid COVID Ag Negative [facility] Swab 05/27/2024 9:09 AM EST us Richard Pedroza MD POINT OF CARE TEST ENTER/EDIT OR DERABLES Final Result [facility] [address] [place] [address] [phone] documented in this encounter Visit Diagnoses Diagnosis Influenza A- Primary Influenza with other respiratory manifestations Mild intermittent asthma with acute exacerbation Elevated blood pressure reading in office without diagnosis of hypertension WOODRUFF (dyspnea on exertion) Other dyspnea and respiratory abnormality documented in this encounter Additional Health Concerns Assessment Noted Time PHQ-9 Depression Total Score: 7 06/01/19 24 2:39 PM EST documented as of this encounter Care Teams Sebd Teacher Relationship Specialty Start Date End Date Lupe Nolen MD [address] [place] [address] PCP - General Internal Medicine 02/06/23 documented as of this encounter
--- OUTSIDE RECORDS SUMMARY | 2024-06-25 11:23 | XMS_ITS | Clinical Summary ---
Author Organization [facility] it[facility] Address [address] [place] [address] Care Team Providers Care Protein Scientist Name Role Phone Unavailable Primary Care Provider Unavailabl e Social History Tobacco Use Types Packs/Day Years Used Date Smoking Tobacco: Never Assessed Comments Unknown Sex and Gender Information Value Date Recorded Sex Assigned at Not on file Legal Sex Female 1:38 PM EDT Gender Identity Not on file Sexual Orientation Not on file Plan of Treatment Health Maintenance Due Date Last Done Comments Breast Cancer Screening 1980 DTaP,Tdap,and Td Vaccines (1 - Tdap) 1999 Hepatitis B Vaccines (1 of 3 - 19+ 3-dose series) 1999 Cervical Cancer Screening: P ap Smear 2001 Depression Screening 11/21/2023 HIV Screening 11/21/2023 Hepatitis C Screening 11/21/2023 Social Influencers of Health Screening 11/21/2023 COVID-19 Vaccine ( - 2023-2 5 season) 2023 Influenza Vaccine (#1) 2023 HIB Vaccines Aged Out No longer eligi ble based on patient's age to complete this topic HPV Vaccines Aged Out No longer eligi ble based on patient's age to complete this topic Hepatitis A Vaccines Aged Out No long er eligible based on patient's age to complete this topic IPV Vaccines Aged Out No longer eligi ble based on patient's age to complete this topic MMR Vaccines Aged Out No longer eligi ble based on patient's age to complete this topic Meningococcal ACWY Vaccine Aged Out N o longer eligible based on patient's age to complete this topic Meningococcal B Vacine Aged Out No lo nger eligible based on patient's age to complete this topic Pneumococcal Vaccine: Pediat rics (0 to 5 Years) and At-Risk Patients (6 to 64 Years) Aged Out No longer eligible b ased on patient's age to complete this topic RSV Immunization Patients Un rinku 20 months Aged Out No longer eligible b ased on patient's age to complete this topic Varicella Vaccines Aged Out No longer eligible based on patient's age to complete this topic
--- OUTSIDE RECORDS SUMMARY | 2024-06-25 11:23 | XMS_ITS | Encounter Summary ---
Author Organization [employer] Address [address] [place] [address] [place] [address] Care Team Providers Care Clinical Instructor Name Role Phone Malathi Hall [facility] Primary Care Provider +1- [phone] Lupe Nolen MD Primary Care Pro vider Encounter Details Date Type Department Care Team (Late Contact Info) Description 10/23/2022 Abstract [facility] MEDIC[facility] [address] [place] [address] Malathi Hall [address] Dept [place] [address] Social History Tobacco Use Types Packs/Day Years Used Date Smoking Tobacco: Never Passive Smoke Exposure: Never Smokeless Tobacco: Never Alcohol Use Standard Drinks/Week Comments Not Currently 0 (1 standard drink = 0.6 oz pur e alcohol) Depression Answer Date Recorded Patient Health Questionnaire-9 Score 0 05/11/2022 Depression Answer Date Recorded Patient Health Questionnaire-2 Score 0 05/11/2022 Comments Yes Sex and Gender Information Value Date Recorded Sex Assigned at Female 02/27/2022 10:39 AM EDT Legal Sex Female 10:39 AM EDT Gender Identity Female 02/27/2022 10:39 AM EDT Sexual Orientation Straight 02/27/2022 10 :39 AM EDT documented as of this encounter Plan of Treatment Upcoming Encounters Date Type Department Care Team (Late Contact Info) Description 07/03/2024 10:00 AM EST Office Visit [facility] ADULT DENTAL [address] [place] [address] Kurt Kirby, DMD [address] [place] [address] documented as of this encounter Visit Diagnoses Not on filedocumented in this encounter Additional Health Concerns Assessment Noted Time PHQ-9 Depression Total Score: 0 05/11/19 23 4:19 PM EST documented as of this encounter Care Teams Clinical Instructor Relationship Specialty Start Date End Date Malathi Hall FNP PCP - General Family Medicine 05/27/21 02/05/23 Lupe Nolen MD [address] [place] [address] PCP - General Internal Medicine 02/06/23 documented as of this encounter
--- OUTSIDE RECORDS SUMMARY | 2024-06-25 11:23 | XMS_ITS | Encounter Summary ---
Author Organization [employer] Address [address] [place] [address] [place] [address] Care Team Providers Care Nurses Medical Assistants Phlebotomists Name Role Phone Malathi Hall Primary Care Provider [phone]- [phone] Lupe Nolen MD Primary Care Pro vider Reason for Visit * Reason Onset Date Comments triage 09/07/2022 Encounter Details Date Type Department Care Team (Late st Contact Info) Description 09/07/2022 Telephone [facility] MED[facility]INE [address] [place] [address] Malathi Hall FNP [address] [place] [address] Dept [place] [address] triage Social History Tobacco Use Types Packs/Day Years [...] Orientation Straight 02/27/2022 10 :39 AM EDT COVID-19 Exposure Response Date Recorded In the last 10 days, have yo u been in contact with someone who was confirmed or suspected to have Coronavirus/COVID-19? No / Unsure 09/05/2022 2:44 PM EDT documented as of this encounter Miscellaneous Notes * Telephone Encounter - Supriya Patiño RN - 09/07/2022 12:41 PM EDT Call to Jennifer George, reports having intermittent abdominal pain that started yesterday. Per pthad some light brown discharge only noticed when wiping. No vaginal bleeding, vomiting or constant pain. Per pt recently found out and wants to make sure everything is ok. Pt advised of disposition per Clear triage protocol. Agrees to seek [facility] now for exam. Pt advised to call back PRN or if any referrals needed. Pt agrees. Sent to team for status check PRN. Protocol Used: - Abdominal Pain Less Than 20 Weeks EGA (Adult) Protocol-Based Disposition: Go to ED/C Now (or to Office with PCP Approval) Positive Triage Question: * Intermittent lower abdominal pain lasting > 24 hours * All higher-acuity triage questions were negative Care Advice Discussed: * Reassurance for Mild Abdominal Pain * Drink Clear Fluids * Reasons To Call Back - Severe pain - You become worse * Telephone Encounter - Puneet Espinoza - 09/07/2022 12:31 PM EDT Symptom: Abdominal Pain During - Under 20 Weeks Outcome: Schedule an urgent appointment (within 4 hours) or talk to a nurse or provider soon Reason: Caller denied all higher acuity questions The caller accepted this outcome documented in this encounter Plan of Treatment Upcoming Encounters Date Type Department Care Team (Late st Contact Info) Description 07/03/2024 10:00 AM EST Office Visit [facility] ADULT DENTAL [address] [place] [address] Kurt Kirby, SAE [address] [place] [address] documented as of this encounter Visit Diagnoses Not on filedocumented in this encounter Additional Health Concerns Assessment Noted Time PHQ-9 Depression Total Score: 0 01/12/20 23 4:19 PM EST documented as of this encounter Care Teams Nurses Medical Assistants Phlebotomists Relationship Specialty Start Date End Date Malathi Hall FNP PCP - General Family Medicine 05/27/21 02/05/23 Lupe Nolen MD [address] [place] [id number] PCP - General Internal Medicine 02/06/23 documented as of this encounter
--- OUTSIDE RECORDS SUMMARY | 2024-06-25 11:23 | XMS_ITS | Encounter Summary ---
Author Organization [employer] Address [address] [place] [address] [place] [address] Care Team Providers Care Poultry Inseminator Name Role Phone Malathi Hall Primary Care Provider +1- [phone] Lupe Nolen MD Primary Care Pro vider Reason for Visit * Reason Onset Date Comments call back 09/07/2022 Encounter Details Date Type Department Care Team (Late st Contact Info) Description 09/07/2022 Telephone [facility] MED[facility]INE [address] [place] [address] Malathi Hall FNP [address] [place] [address] Dept [place] [address] call back Social History Tobacco Use Types Packs/Day Years [...] encounter Miscellaneous Notes * Telephone Encounter - Puneet Espinoza - 09/07/2022 12:34 PM EDT Tc from pt requesting to have a nurse pebbles back regarding getting set with the appt Please contact pt at [phone] documented in this encounter Plan of Treatment Upcoming Encounters Date Type Department Care Team (Late st Contact Info) Description 07/03/2024 10:00 AM EST Office Visit [facility] ADULT DENTAL [address] [place], [place] [phone] Kurt Kirby, DMD [address] [place] [address] documented as of this encounter Visit Diagnoses Not on filedocumented in this encounter Additional Health Concerns Assessment Noted Time PHQ-9 Depression Total Score: 0 05/11/19 23 4:19 PM EST documented as of this encounter Care Teams Poultry Inseminator Relationship Specialty Start Date End Date Malathi Hall FNP PCP - General Family Medicine 05/27/21 02/05/23 Lupe Nolen MD [address] [place] [address] PCP - General Internal Medicine 02/06/23 documented as of this encounter
--- OUTSIDE RECORDS SUMMARY | 2024-06-25 11:23 | XMS_ITS | Encounter Summary ---
Author Organization [employer] Address [address] [place] [address] [address] [place] [address] Care Team Providers Care [employer] Teacher Name Role Phone Malathi Hall Elis IT APPLICATION SUPPORT ANALYST Primary Care Provider +1- [phone] Lupe Nolen MD Primary Care Pro vider Encounter Details Date Type Department Care Team (Late st Contact Info) Description 06/12/2022 Abstract [facility] ADULT DENTAL [address] [place] [address] Maynor Webster DDS [address] [place] [address] Social History Tobacco Use Types Packs/Day Years Used Date Smoking Tobacco: Never Passive Smoke Exposure: Never Smokeless Tobacco: Never Alcohol Use Standard Drinks/Week Comments Not Currently 0 (1 standard drink = 0.6 oz pur e alcohol) Depression Answer Date Recorded Patient Health Questionnaire-9 Score 0 05/11/2022 Depression Answer Date Recorded Patient Health Questionnaire-2 Score 0 05/11/2022 Comments Unknown Sex and Gender Information Value [...] suspected to have Coronavirus/COVID-19? No / Unsure 05/24/2022 10:48 AM EST documented as of this encounter Plan of Treatment Upcoming Encounters Date Type Department Care Team (Late st Contact Info) Description 07/03/2024 10:00 AM EST Office Visit [facility] ADULT DENTAL [address] [place], [place] [id number] Kurt Kirby, DMD [address] [place], [place] [id number] documented as of this encounter Visit Diagnoses Not on filedocumented in this encounter Additional Health Concerns Assessment Noted Time PHQ-9 Depression Total Score: 0 05/11/19 23 4:19 PM EST documented as of this encounter Care Teams [employer] Teacher Relationship Specialty Start Date End Date Malathi Hall FNP PCP - General Family Medicine 05/27/21 02/05/23 Lupe Nolen MD [address] [place], [place] [phone] PCP - General Internal Medicine 02/06/23 documented as of this encounter
--- OUTSIDE RECORDS SUMMARY | 2024-06-25 11:23 | XMS_ITS | Clinical Summary ---
Author Organization [employer] Address [address] [place] [address] 7[address] [place] [address] Care Team Providers Care Stamp Mounter Name Role Phone Lupe Nolen MD Primary Care Pro vider Allergies Active Allergy Reactions Criticality Noted Date Comments Morphine Rash Low 12/21/2020 Medications * This document contains information received from the source organization and may not represent a complete record from that organization. Blood Pressure Monitoring (Omron 3 Series BP Monitor) device CHECK BLOOD PRESSURE DAILY AT REST AND RECORD NUMBERS 06/30/19 22 Active ferrous gluconate (Fergon) 324 (38 Fe) MG tablet Take 324 mg by mouth with breakfast. Active Vit-Fe Fumarate-FA ( Vitamins) 28-0.8 MG tabletIndicati ons:Family Planning Take 1 tablet by mouth Once per day. 90 tablet 3 11/22/19 24 025 Active naproxen (Naprosyn) 500 MG tablet TAKE 1 TABLET BY MOUTH TWICE DAILY NEEDED FOR PAIN FOR 7 DAYS 03/05/20 24 Active acetaminophen (Tylenol) 500 MG tablet Take 2 tablets (1,000 mg) by mouth every 6 (six) hours if needed for moderate pain or fever for up to 25 doses. 50 tablet 05/27/19 25 Active ibuprofen 400 MG tablet Take 1 tablet (400 mg) by mouth every 6 (six) hours if needed for moderate pain or fever for up to 30 doses. 30 tablet 05/27/19 25 Active albuterol 108 (90 Base) MCG/ACT inhalerIndicat ions:WOODRUFF (dyspnea on exertion) Inhale 2 puffs every 6 (six) hours if needed for wheezing. 18 g 11 05/27/19 25 026 Active Spacer/Aero-Ho lding Chambers (OptiChamber Tiffany) misc 1 each every 4 (four) hours if needed (asthma). 1 each 05/27/19 25 Active cholecalcifero l (Vitamin D-3) 50 MCG (2000 UT) capsule Take 1 capsule (50 mcg) by mouth Once per day. 90 capsule 3 05/27/19 25 026 Active albuterol 108 (90 Base) MCG/ACT inhalerIndicat ions:WOODRUFF (dyspnea on exertion) Inhale 2 puffs every 6 (six) hours if needed for wheezing. 18 g 11 06/01/19 24 025 Discontinued(Re order (will not trigger notification to Pharmacy)) cholecalcifero l (Vitamin D-3) 50 MCG (2000 UT) capsule Take 1 capsule (50 mcg) by mouth in the morning. 90 capsule 06/01/19 24 025 Discontinued(Re order (will not trigger notification to Pharmacy)) predniSONE (Deltasone) 20 MG tablet Take 2 tablets (40 mg) by mouth Once per day for 5 days. 10 tablet 05/27/19 25 025 Active Problems Problem Noted Date Diagnosed Date Hernia of abdominal cavity 03/10/2024 Assessment & Plan (03/29/2024 6:23 PM EST): No s/s of incarceration, reviewed signs requiring urgent evaluation, pt aware of upcoming visit with surgical team and confirmed date left sided pain is msk in nature, reviewed supportive measures, Asthma 10/11/2023 Dental caries 07/10/2023 Fracture of root of tooth 07/10/2023 Vitamin D deficiency 07/10/2023 Knee pain 07/10/2023 Depression, unspecified 06/01/2023 Assessment & Plan (06/01/2023 2:49 PM EST): HUMBERTO NOTE: ID: Jennifer is a 43 y.o. Black or straight-identified cis-female (pronouns she/her/hers) with No previous hx of MH dx or sx No previous hx of MH services who presents for Depression During IBH Consult Jennifer presenting with depressed mood, changes in sleep difficulty staying asleep , fatigue/loss of energy; for a period of 18+ mo, for all symptoms in the context of Jennifer [place] two years ago and is struggling to adjust, she is also the go to person in her family and she feels overwhelm. She has 2 jobs and is currently in school. PLAN: New/Additional Services needed Off-site services for Behavioral Health Integration Plan External OP therapy referral Patient Self Plan Patient to utilize skills provided in intervention and Patient to reach out to [facility] team as needed Hypertension 12/22/2022 Assessment & Plan (12/22/2022 10:39 AM EDT): Controlled. Repeat BP 140/80 Cont lifestyle modifications Counseled re: low salt diet/increase moderate physical activity. Check home BP BIW and prn CP/LAO/WOODRUFF Non smoking patient. FU w/ PCP as scheduled Encounter for preventive health examination 11/29 Assessment & Plan (12/22/2022 10:49 AM EDT): Discussed with patient re increase fresh fruit and vegetable intake. Counseled re moderate exercise as tolerated, up to 20min/d Patient feels safe at home. PAP smear: UTD, next due 2024 Mammogram: UTD, upcoming appt JAN 23 Labs: UTD, due JUN 2023 Eye exam: UTD, next due 2024 CRC screen: Due in 2025 Lipids/FBS: UTD Vaccinations: Pt declined COVID vax, agrees to Td booster today; MMR titers UTD, next due 2023. Obtain Hep B titers. Counseled about IZ in Fall. FU w/ PCP as scheduled Dental visit: UTD Iron deficiency anemia 06/18/2021 Prediabetes 06/10/2021 Myopia of both eyes 06/03/2021 Uterine leiomyoma 06/03/2021 Severe obesity 05/27/2021 Resolved Problems Problem Noted Date Diagnosed Date Resolved Date WOODRUFF (dyspnea on exertion) 07/10/2023 First trimester bleeding 12/22/2022 Encounters Date Type Department Care Team Description 05/27/2024 8:40 AM EST Office Visit [facility] [address] [place] [address] Richard Pedroza MD Influenza A (Primary Dx); Mild intermittent asthma with acute exacerbation; Elevated blood pressure reading in office without diagnosis of hypertension; WOODRUFF (dyspnea on exertion) from Last 3 Months Immunizations Name Administration Dates Next Due MMR 05/03/2018 Family History Medical History Relation Name Comments Bipolar dx? Brother Depression, CKD on HD Brother COPD Father Schizophrenia Father HTN Maternal Grandfather DM2 Mother Breats ca 60s Mother's Sister HTN Paternal Grandmother Relation Name Status Comments Brother Father Maternal Grandfather Mother Mother's Sister Paternal Grandmother Social History Tobacco Use Types Packs/Day Years Used Date Smoking Tobacco: Never Passive Smoke Exposure: Never Smokeless Tobacco: Never Tobacco Cessation:Counseling Given: Not Answered Alcohol Use Standard Drinks/Week Comments Yes 0 [...] Orientation Straight 02/27/2022 10 :39 AM EDT Last Filed Vital Signs Vital Sign Reading [...] 3.2 oz) 05/27/2024 8:52 AM EST Height 172.7 cm (5' 8 ) 11/22/2023 9:33 AM EDT Body Mass Index 50.66 11/22/2023 9:33 AM EDT Plan of Treatment Upcoming Encounters Date Type Department Care Team (Late st Contact Info) Description 07/03/2024 10:00 AM EST Office Visit [facility] [address], [place] [phone] Kurt Kirby, DMD [address] [place] [address] Health Maintenance Due Date Last Done Comments Dental X-Ray: Full Mouth 1980 Alcohol/Substance Use Screening 1992 Family Planning (PISQ) 1995 DTaP/Tdap/Td Vaccines (1 - Tdap) 1999 Hepatitis B Vaccines (1 of 3 - 19+ 3-dose series) 1999 Pneumococcal Vaccine: Pediatrics (0 to 5 Years) and At-Risk Patients (6 to 49) Years) (1 of 2 - PCV) 1999 Dental Prophylaxis 11/22/2022 05/24/2022 Dental Oral Exam 12/28/2023 06/28/2023, 05/24/2022 COVID-19 Vaccine (1 - season) 2023 Influenza Vaccine (#1) 2023 Depression Screening 06/01/2024 06/01/2023, 06/01/19 24 Diabetes: Hemoglobin A1C 06/01/2024 024, 12/22/2022, 05/31/2021 SDOH Screening 06/01/2024 06/01/2023 Dental X-Ray: Bitewings 06/28/2024 06/28/2023, 05/24 Pap Smear 06/30/2024 06/30/2021 Tobacco Screening 05/27/2025 05/27/2024 Mammogram 06/20/2025 06/20/2023, 12/30, 07/05/2021 Cervical Cancer Screening 06/30/2026 HPV/Cotest 06/30/2026 06/30/2021 Lipid Panel 06/01/2028 06/01/2023, 05/31/2021 Zoster Vaccines (1 of 2) 2030 RSV Patients and Patients Aged 60 years or older (1 - 1-dose 75+ series) 2055 HIV Screening Completed 06/01/2023, 05/31/2021 Hepatitis C Screening Completed 06/01/2023 , 06/01/2023, 12/22/2022, Additional history exists HIB Vaccines Aged Out No longer eligi [...] patient's age to complete this topic Meningococcal Vaccine Aged Out No mary ellen nikki eligible based on patient's age to complete this topic RSV under 20 months Aged Out No longe r eligible based on patient's age to complete this topic Rotavirus Vaccines Aged Out No longer eligible based on patient's age to complete this topic Procedures Procedure Name Priority Date/Time Associated Diagnosis Comments POCT INFLUENZA B (ID NOW RAPID MOLECULAR) Routine 05/27/2024 9:09 AM EST Influenza A POCT INFLUENZA A (ID NOW RAPID MOLECULAR) Routine 05/27/2024 9:09 AM EST Influenza A POCT RAPID COVID ANTIGEN Routine 05/27/2024 9:09 AM EST Influenza A BITEWINGS - 4 RADIOGRAPHIC IMAGES Routine 06/28/2023 1:30 PM EST PERIODIC ORAL EVALUATION - ESTABLISHED PATIENT Routine 06/28/2023 1:30 PM EST BI MAMMOGRAM DIAGNOSTIC TOMOSYNTHESIS BILATERAL Routine 06/20/2023 10:26 AM EST HEPATITIS C AB W/REFL TO HCV RNA, QN, PCR Routine 06/01/2023 1:10 PM EST Annual physical exam HIV 1/2 ANTIGEN/ANTIBODY, FOURTH GENERATION W/RFL Routine 06/01/2023 1:10 PM EST Annual physical exam HEMOGLOBIN A1C Routine 06/01/2023 1:10 PM EST Annual physical exam LIPID PANEL, STANDARD Routine 06/01/2023 1:10 PM EST Annual physical exam Full PROPHYLAXIS - ADULT Routine 05/24/2022 11:00 AM EST THINPREP IMAGING PAP AND HPV MRNA E6/E7, WITH CT/NG, TRICHOMONAS Routine 06/30/2021 12:00 AM EST from Last 3 Months or Most Recently Relevant to Health Maintenance Results * Influenza B (ID NOW Rapid Molecular) (05/27/2024 9:09 AM EST) Influenza B Negative Negative, Indeterminate [facility] Swab 05/27/2024 9:09 AM EST Richard Pedroza MD POINT OF CARE TEST ENTER/EDIT OR DERABLES Final Result [facility] [address] [place] [phone] * (ABNORMAL) Influenza A (ID NOW Rapid Molecular) (05/27/2024 9:09 AM EST) Influenza A Positive( A) Negative, Indeterminate [facility] Swab 05/27/2024 9:09 AM EST Richard Pedroza MD POINT OF CARE TEST ENTER/EDIT OR DERABLES Final Result Performing Organization Address [facility] Co de Phone Number [facility] [address] [place] [address] [phone] * POCT Rapid COVID Ag (05/27/2024 9:09 AM EST) Rapid COVID Ag Negative [facility] Swab 05/27/2024 9:09 AM EST Richard Pedroza MD POINT OF CARE TEST ENTER/EDIT OR DERABLES Final Result Performing Organization Address [facility] de Phone Number [facility] [address] [place] [address] [phone] * BI Mammogram Diagnostic Tomosynthesis Bilateral (06/20/2023 10:26 AM EST) Anatomical Region Laterality Modality Breast Bilateral Mammography 06/20/2023 10:2 6 AM EST Narrative 07/04/2023 12:25 PM EST ? [facility] ? [address] ?[place] [address] ? Mammography Report ? Signed ? Patient: GeorgeJennifer ?MR#: [id number] ?? [id number] ? : 1980 ?Acct:[id number] ? Age/Sex: 43 / F ?ADM Date: 02/21/24 ? Loc: HO.MAMMO ? Attending Dr: Lupe Hinton MD ? Ordering Physician: Lupe Nolen MD ?Re ?? sults: 1Negative ? Date of Service: 06/20/23 ?Follow Up: 1 Year From Orig ?? inal Mammogram ? Procedure(s): MM tomosynthesis diagnostic BI ?? Accession Number(s): [id number] ? cc: Lupe Nolen MD ? EXAMINATION: ?? MM DIAGNOSTIC DIGITAL BREAST TOMOSYNTHESIS, BILATERAL ? CLINICAL INFORMATION: ? The patient had a baseline mammogram on 07/05/2021. At that time, ?? additional imaging was recommended. The patient had diagnostic ?? mammography on 01/17/2022 which showed a probably benign focal ?? asymmetry in the upper outer quadrant of the right breast which was ?? unchanged. In the interval, the patient has been was unable to ?? return for the additional imaging. Now returns for bilateral ?? mammography. ? COMPARISON: ?? Mammography: This study is compared with previous mammographic imaging ?? dating back to 2021. ? TECHNIQUE: ?? Digital breast tomosynthesis is performed in both the craniocaudal and ?? mediolateral oblique views along with computer-aided detection (CAD). ?? Synthesized 2D images are generated from the tomosynthesis. ? FINDINGS: ?? There are scattered areas of fibroglandular density (ACR BI-RADS breast ?? composition Category b). ? There are no significant masses, abnormal calcifications, or other ?? abnormalities. ?? This been no interval change in the upper outer quadrant focal ?? asymmetry which has the appearance of a normal intramammary lymph node. ?? There are no mammographic signs of malignancy in either breast. ? MM/MM tomosynthesis diagnostic BI ?? IMPRESSION: ?? There are no significant changes from prior study. ? ASSESSMENT: ? BI-RADS BI-RADS 1 - Negative ? RECOMMENDATION: ?? 1 year F/U ? Results were provided to the patient at time of visit by the ?? technologist. ? This patient's information was entered into a reminder system with a ?? target due date for their next mammogram. ? Dictated By: ?Pamela Jarrell MD ? Signed By: ?<Electronically signed by Pamela Jarrell MD in OV> ? 07/04/23 1221 ? DD/ 1026 ? TD/TT: ? Electric Scoop Operator: ? Procedure Note Donotcatrinainterpreter, Image - 07/04/2023 [facility] [address] [place] [address] Mammography Report Signed Patient: Carl George#: [id number] : 1980Acct:[id number] Age/Sex: 43 / FADM Date: 06/20/23 Loc: HO.MAMMO Attending Dr: Lupe Hinton MD Ordering Physician: Lupe Nolen sults: 1Negative Date of Service: 06/20/23Follow Up: 1 Year From Orig inal Mammogram Procedure(s): MM tomosynthesis diagnostic BI Accession Number(s): [id number] cc: Lupe Nolen MD EXAMINATION: MM DIAGNOSTIC DIGITAL BREAST TOMOSYNTHESIS, BILATERAL CLINICAL INFORMATION: The patient had a baseline mammogram on 07/05/2021. At that time, additional imaging was recommended. The patient had diagnostic mammography on 01/17/2022 which showed a probably benign focal asymmetry in the upper outer quadrant of the right breast which was unchanged. In the interval, the patient has been was unable to return for the additional imaging. Now returns for bilateral mammography. COMPARISON: Mammography: This study is compared with previous mammographic imaging dating back to 2021. TECHNIQUE: Digital breast tomosynthesis is performed in both the craniocaudal and mediolateral oblique views along with computer-aided detection (CAD). Synthesized 2D images are generated from the tomosynthesis. FINDINGS: There are scattered areas of fibroglandular density (ACR BI-RADS breast composition Category b). There are no significant masses, abnormal calcifications, or other abnormalities. This been no interval change in the upper outer quadrant focal asymmetry which has the appearance of a normal intramammary lymph node. There are no mammographic signs of malignancy in either breast. MM/MM tomosynthesis diagnostic BI IMPRESSION: There are no significant changes from prior study. ASSESSMENT: BI-RADS BI-RADS 1 - Negative RECOMMENDATION: 1 year F/U Results were provided to the patient at time of visit by the technologist. This patient's information was entered into a reminder system with a target due date for their next mammogram. Dictated By: Pamela Jarrell MD Signed By: <Electronically signed by Pamela Jarrell MD in OV> 07/04/23 1221 DD/ 1026 TD/TT: Electric Scoop Operator: Lupe Hinton MD IMG BI PROCEDURES Final Result * (ABNORMAL) Hepatitis C Antibody with Reflex to HCV, RNA, Quantitative, Real- Time PCR (06/01/2023 1:10 PM EST) Hepatitis C Antibody Reactive( A) Nonreactive [facility] Comment:Presumptive evidence of antibodies to HCV. Blood Venous blood specimen / Unknown 06/01/2023 1:10 PM EST 06/01/2023 4:02 PM EST Lupe Hinton MD LAB BLOOD ORDERAB LES Final Result [facility] [address] [place] [phone] [phone] * HIV-1/2 Antigen and Antibodies, Fourth Generation, with Reflexes (06/01/2023 1:10 PM EST) HIV AB/AG Nonreactive Nonreactive [facility] Comment:HIV-1 p24 Ag and/or HIV-1/HIV-2 Ab not detected.A test result that is nonreactive does not exclude thepossibility of exposure to or infection with HIV-1 and/orHIV-2. Nonreactive results in this assay for individualswith prior exposure to HIV-1 and/or HIV-2 may be due toantigen and antibody levels that are below the limit ofdetection of this assay.The GOOD HIV Ag/Ab Combo assay result andsupplemental assay results should be interpreted inconjunction with the patient's clinical presentation,history and other laboratory results. If the results areinconsistent with clinical evidence, additional testing issuggested to confirm the result. Blood Venous blood specimen / Unknown 06/01/2023 1:10 PM EST 06/01/2023 4:02 PM EST Lupe Hinton MD LAB BLOOD ORDERAB LES Final Result Performing Organization Address [facility] Co de Phone Number [facility] [address] [place] [phone] * Hemoglobin A1c (06/01/2023 1:10 PM EST) Hemoglobin A1c 6.0 <6.0 % [facility] Comment:Hemoglobin A1C Refer ence Range Adults: 4.8 - 6.0 % Non diabetic: < 6.0 % Goal: < 7.0 %Additional Action Suggested: > 8.0 %Note: Hemoglobin A1c results are invalid for patients with abnormal amounts of HbF. Blood transfusions may impact the HbA1c concentration in the patient sample. Estimated Average Glucose 126 mg/dL [facility] Comment:eAG = Estimated ave rage glucose which is %A1C expressed asaverage glucose, using the formula of the K1T-GmkfqqcXewziwn Glucose study (ADAG), Diabetes Care, Vol.31,#8,Nov. 2007 Blood Venous blood specimen / Unknown 06/01/2023 1:10 PM EST 06/01/2023 4:02 PM EST us Lupe Hinton MD LAB BLOOD ORDERAB LES Final Result Performing Organization Address [facility] Co de Phone Number [facility] [address] [place] [phone] * (ABNORMAL) Lipid Panel, Standard (06/01/2023 1:10 PM EST) Triglycerides 73 <150 mg/dL [facility] Comment:Desirable Triglyceri de: less than 150 mg/dLBorderline High Triglyceride 150-199 mg/dLHigh Triglyceride: 200-499 mg/dLVery High Triglyceride: greater than or equal to 5OO mg/dL Cholesterol 163 <200 mg/dL [facility] Comment:Desirable Cholestero l: less than 200 mg/dLBorderline High Cholesterol: 200-239 mg/dLHigh Cholesterol: greater than 239 mg/dL LDL Cholesterol Calculated 102(H) <100 mg/dL [facility] Comment:Desirable LDL: less than 100 mg/dLNear Optimal/Above Optimal LDL: 110- 129 mg/dLBorderline High LDL: 130-159 mg/dLHigh LDL: 160-189 mg/dLVery High LDL: greater than or equal to 190 mg/dL HDL Cholesterol 47 >40 mg/dL [facility] Comment:Desirable HDL: great er than 40 mg/dL Note: This HDL assay may give artificially low results in patients with liver disease. Blood Venous blood specimen / Unknown 06/01/2023 1:10 PM EST 06/01/2023 4:02 PM EST us Lupe Hinton MD LAB BLOOD ORDERAB LES Final Result [facility] [address] [place] [phone] * THINPREP TIS PAP AND HPV mRNA E6/E7, CT/NG, TRICH (06/30/2021 12:00 AM EST) Chlamydia trachomatis RNA, TMA, Urogenital NOT DETECTED NOT DETECTED [facility] Clinical Information: None given [facility] COMMENT SEE COMMENT [facility] Comment: The analytical performance characteristics of this assay, when used to test SurePath(TM) specimens have been determined by [facility]. The modifications have not been cleared or approved by the FDA. This assay has been validated pursuant to the CLIA regulations and is used for clinical purposes. ?? For additional information, please refer to https://education.CereSoft/faq/KZA309 (This link is being provided for information/ educational purposes only.) ?? COMMENT SEE COMMENT [facility] Comment: EXPLANATORY NOTE: ? The Pap is a screening test for cervical cancer. It is ?? not a diagnostic test and is subject to false negative ?? and false positive results. It is most reliable when a ?? satisfactory sample, regularly obtained, is submitted ?? with relevant clinical findings and history, and when ?? the Pap result is evaluated along with historic and ?? current clinical information. ?? COMMENT: This Pap test has been evaluated with computer assisted technology. [facility] Teacher Private: SEE COMMENT [facility] Comment: CELY CALLOWAY(ASCP) CT screening location: [address] ??[id number] HPV nRNA E6/E7 Not Detected Not Detected [facility] Comment: Methodology: Professor Of Industrial Technology-Mediated Amplification This assay detects E6/E7 viral messenger RNA (mRNA) from 14 high-risk HPV types (16,18,31,33,35,39,45,51,52,56,58,59,66,68). ? The analytical performance characteristics of this assay have been determined by [facility]. The modifications have not been cleared or approved by the FDA. This assay has been validated pursuant to the CLIA regulations and is used for clinical purposes. ?? For additional information, please refer to http://Wireless Environment.CereSoft/faq/CRV309a5 (This link if provided for information/ educational purposes only.) Interpretation/Re sult: Negative for intraepithelial lesion or malignancy. [facility] LMP: NONE GIVEN [facility] Neisseria gonorrhoeae RNA, TMA, Urogenital NOT DETECTED NOT DETECTED [facility] Prev. BX: NONE GIVEN [facility] Prev. PAP: NONE GIVEN [facility] SOURCE: None given [facility] Statement Of Adequacy: SEE COMMENT [facility] Comment: Satisfactory for evaluation. Endocervical/transformation zone component present. Trichomonas vaginalis, QL, TMA, PAP Vial NOT DETECTED NOT DETECTED [facility] Comment: The analytical performance characteristics of this assay have been determined by [facility]. The modifications have not been cleared or approved by the FDA. This assay has been validated pursuant to the CLIA regulations and is used for clinical purposes. ?? For additional information, please refer to http://education.[employer]ereSoft/ faq/Trichomonastma (This link is being provided for information/ educational purposes only.) ?? 06/30/2021 Malathi Gillis Rafael SHIP SURVEYOR LAB PATHOLOGY ORDERABLES F inal Result [facility] [address] from Last 3 Months or Most Recently Relevant to Health Maintenance Insurance HSN FULL [facility] D[facility] - N FULL (MEDICAID) Care Teams Stamp Mounter Relationship Specialty Start Date End Date Lupe Nolen MD [address] [place] [address] PCP - General Internal Medicine 02/06/23
--- OUTSIDE RECORDS SUMMARY | 2024-06-25 11:23 | XMS_ITS | Encounter Summary ---
Author Organization [employer] Address [address] [place] [address] [address] [place] [address] Care Team Providers Care Manager Post Name Role Phone Malathi Hall Elis [facility] Primary Care Provider [phone] Lupe Nolen MD Primary Care Pro vider Encounter Details Date Type Department Care Team (Late Contact Info) Description 08/07/2022 Abstract [facility] [address] [place] [address] Henry Maloneyaris [address] [place] [address] Social History Tobacco Use Types Packs/Day Years [...] Description 07/03/2024 10:00 AM EST Office Visit [facility] [address] [place] [address] Kurt Kirby DMD [address] [place] [address] documented as of this encounter Visit Diagnoses Not on filedocumented in this encounter Additional Health Concerns Assessment Noted Time PHQ-9 Depression Total Score: 0 05/11/19 23 4:19 PM EST documented as of this encounter Care Teams Manager Post Relationship Specialty Start Date End Date Malathi Hall FNP PCP - General Family Medicine 05/27/21 02/05/23 Lupe Nolen MD [address] [place] [address] PCP - General Internal Medicine 02/06/23 documented as of this encounter
== END 2024-06-25 09:46 | disposition home or self-care (01) ==
LOC: HO.MAMMO 09:45
PROVIDERS: PCP Student in an Organized Health Care Education/Training Program; Visit Provider Student in an Organized Health Care Education/Training Program
DX: Z13.89 Encounter for screening for other disorder (principal)

== ENCOUNTER 2024-09-02 10:35 | Outpatient (REF) | payer OTHER, SELFPAY ==
--- NOTE | ~2024-09-02 | XR_ITS ---
EXAMINATION: XR FOOT, RIGHT CLINICAL INFORMATION: chronic pain in right foot in base of great toe and top of foot. COMPARISON: 09/03/2023. TECHNIQUE: AP, lateral, and oblique views of the right foot. FINDINGS: There is no fracture, dislocation, or suspicious bone lesion. There is a mild pes planus deformity. Mild hallux valgus. There is normal alignment otherwise. Joint spaces are largely preserved. No erosions present. Minimal degenerative spurring along the dorsal aspects of the tarsometatarsal and intertarsal joints. There there are small dorsal and small plantar calcaneal spurs. There is mild soft tissue prominence overlying the ventral forefoot and midfoot. XR/XR foot RT min 3V IMPRESSION: 1. No acute bony abnormalities of the right foot. 2. Mild pes planus deformity. Mild hallux valgus. 3. Small dorsal and plantar calcaneal spurs. Electronically signed by: Petr Don MD 09/02/2024 11:31 AM EDT
--- OUTSIDE RECORDS SUMMARY | 2024-09-02 12:12 | XMS_ITS | Clinical Summary ---
Author Organization [facility] it[facility] Address [address] [place] [address] Care Team Providers Care [facility] Director Name Role Phone Unavailable Primary Care Provider [...] - 2023-2 5 season) 2023 Influenza Vaccine (Season Ended) 2024 HIB Vaccines Aged Out No longer eligi [...] age to complete this topic Meningococcal B Vaccine Aged Out No l onger eligible based on patient's age to complete [...]
== END 2024-09-02 10:36 | disposition home or self-care (01) ==
LOC: HO.HHCX 10:35
PROVIDERS: Visit Provider Student in an Organized Health Care Education/Training Program
DX: M79.671 Pain in right foot (principal)
CPT/HCPCS: 73630

== ENCOUNTER → 2024-09-02 10:36 | Outpatient (BNV) | payer OTHER, SELFPAY | PROVIDERS: Visit Provider Radiology Diagnostic Radiology | DX: M79.671 Pain in right foot (principal) | CPT/HCPCS: 73630 ==

== ENCOUNTER 2024-10-23 11:41 | Outpatient (REF) | payer OTHER, SELFPAY ==
--- OUTSIDE RECORDS SUMMARY | 2024-10-23 14:06 | XMS_ITS | Clinical Summary ---
Author Organization [employer] Address [address] [place] [address] Care Team Providers Care Associate Scientist Name Role Phone Lupe Nolen MD Primary Care Pro vider Allergies Active Allergy Reactions Criticality Noted Date Comments Morphine Rash Low 12/21/2020 Medications * This document contains information received from the source organization and may not represent a complete record from that organization. Blood Pressure Monitoring (Omron 3 Series BP Monitor) device CHECK BLOOD PRESSURE DAILY AT REST AND RECORD NUMBERS 2 Active acetaminophen (Tylenol) 500 MG tablet Take 2 tablets (1,000 mg) by mouth every 6 (six) hours if needed for moderate pain or fever for up to 25 doses. 50 tablet 5 Active albuterol 108 (90 Base) MCG/ACT inhalerIndicati ons:WOODRUFF (dyspnea on exertion) Inhale 2 puffs every 6 (six) hours if needed for wheezing. 18 g 11 5 05/27/19 26 Active Spacer/Aero-Hol ding Chambers (OptiChamber Tiffany) misc 1 each every 4 (four) hours if needed (asthma). 1 each 5 Active cholecalciferol (Vitamin D-3) 50 MCG (2000 UT) capsule Take 1 capsule (50 mcg) by mouth Once per day. 90 capsule 3 5 05/27/19 26 Active ferrous gluconate (Fergon) 324 (38 Fe) MG tablet Take 1 tablet (324 mg) by mouth 3 (three) times a week. 45 tablet 2 5 Active fluticasone (Flonase) 50 MCG/ACT nasal spray Administer 2 sprays into each nostril Once per day. Shake gently. Before first use, prime pump. After use, clean tip and replace cap. 16 g 2 5 09/10/19 26 Active Active Problems Problem Noted Date Diagnosed Date Umbilical hernia 09/02/2024 Alopecia 09/02/2024 Hernia of abdominal cavity 03/10/2024 Assessment & [...] in the context of Jennifer moved from [place] two years ago and is struggling to adjust, she is also the go to person in her family and she feels overwhelm. She has 2 jobs and is currently in school. PLAN: New/Additional Services needed Off-site services for Behavioral Health Integration Plan External OP therapy referral Patient Self Plan Patient to utilize skills provided in intervention and Patient to reach out to [facility] team as needed Hypertension 12/22/2022 Assessment & [...] Encounters Date Type Department Care Team Description 10/13/2024 9:00 AM EDT Nutrition [facility] DIABETES[facility]NUTRITION [address] [place] [phone] Severe obesity (CMS/HCC) (Primary Dx) 10/13/2024 Travel 10/12/2024 Travel 09/09/2024 9:00 AM EDT Office Visit [facility] [address] [place] [phone] Fermin, [place] Thony Stuffy and runny nose (Primary Dx); Hoarseness; Sneezing; Acute cough; Seasonal allergies 09/09/2024 Travel 09/02/2024 9:15 AM EDT Office Visit [facility] [address] [place] [phone] Lupe Nolen MD Prediabetes (Primary Dx); Dietary counseling; Exercise counseling; Foot pain, right; Severe obesity (CMS/HCC); Uterine leiomyoma, unspecified location; Breast cancer screening by mammogram; Hair loss; Annual physical exam; Primary hypertension; Encounter for preventive health examination; Umbilical hernia without obstruction and without gangrene; Alopecia 09/02/2024 Travel 08/29/2024 Telephone [facility] [address] [place] [address] Lupe Nolen MD chartprep 08/25/2024 Telephone [facility] [address], [place] [phone] Lupe Nolen MD Nurse Triage 08/20/2024 Patient Outreach [facility] MED & PEDS [address] [place], [place] [phone] Lupe Nolen MD Pre-visit Planning ([facility] unable to reach [facility]) from Last 3 Months Immunizations Immunization Administration Dates Next Due MMR 05/03/2018 Family History Medical History Relation Name Comments Bipolar dx? Brother Depression, CKD on HD Brother COPD Father Schizophrenia Father HTN Maternal Grandfather DM2 Mother Breats ca 60s Mother's Sister Cancer Mother's Sister two w breast ca HTN Paternal Grandmother Relation Name Status Comments [...] Answer Date Recorded Patient Health Questionnaire-9 Score 2 09/02/2024 Patient Health Questionnaire-9 Score 2 09/02/2024 Last PHQ-9: Questionnaire Data Not on file 0 09/02/2024 Housing Stability Answer Date Recorded What is your housing situation today? I have justin sing 09/02/[address] you li ve. Do you have problems with any of the following? Mold 09/02/2024 Food Insecurity Answer Date Recorded Within the past 12 months, y ou worried that your food would run out before you got money to buy more: Never True 09/02/2024 Within the past 12 months,th e food you bought just didn't last and you didn't have enough money to get more: Never True 09/2024 Transportation Answer Date Recorded In the past 12 months, has l ack of transportation kept you from medical appts, meetings, work or from getting things needed for daily living? No 09/02/2024 Utilities Answer Date Recorded In the past 12 months, has t he electric, gas, oil or water company threatened to shut off services in your home? No 09/02/2024 Depression Answer Date Recorded Patient Health Questionnaire-2 Score 0 09/02/2024 Internet Access Answer Date Recorded Internet Access Q1 Yes 09/02/2024 Internet Access Q2 Not on file 09/02/2024 Comments No Sex and Gender Information Value Date Recorded Sex Assigned at Female 02/27/2022 10:39 AM EDT Legal Sex Female 10:39 AM EDT Gender Identity Female 02/27/2022 10:39 AM EDT Sexual Orientation Straight 02/27/2022 10 :39 AM EDT Last Filed Vital Signs Vital Sign Reading Time Taken Comments Blood Pressure 138/80 09/09/2024 9:08 AM EDT Pulse 100 09/09/2024 9:08 AM EDT Temperature 36.4 C (97.5 F) 09/09/2024 9:08 AM EDT Respiratory Rate 18 09/09/2024 9:08 AM EDT Oxygen Saturation 99% 09/09/2024 9:08 AM EDT Inhaled Oxygen Concentration - - Weight 154 kg (340 lb) 10/13/2024 2:14 PM EDT Height 172.7 cm (5' 8 ) 10/13/2024 2:14 PM EDT Body Mass Index 51.7 10/13/2024 2:14 PM EDT Plan of Treatment Upcoming Encounters Date Type Department Care Team (Late st Contact Info) Description 10/28/2024 9:00 AM EDT Office Visit [facility] [address] [place] [phone] Lupe oNlen MD [address] [place], [place] [phone] 11/10/2024 11:00 AM EDT Clinical Support [facility] DI[facility]ETES[facility]NUTRITION [address] [place] [phone], [place] [phone] Health Maintenance Due Date Last Done Comments Dental X-Ray: Full Mouth 1980 Family Planning (PISQ) 1995 DTaP/Tdap/Td Vaccines (1 - Tdap) 1999 Hepatitis B Vaccines (1 of 3 - 19+ 3-dose series) 1999 Pneumococcal Vaccine: Pediatrics (0 to 5 Years) and At-Risk Patients (6 to 49) Years (1 of 2 - PCV) 1999 Dental Prophylaxis 11/22/2022 05/24/2022 Dental Oral Exam 12/28/2023 06/28/2023, 05/24/2022 COVID-19 Vaccine ( - season) 2023 Dental X-Ray: Bitewings 06/28/2024 06/28/2023, 05/24 Influenza Vaccine (Season Ended) 2024 Mammogram 06/20/2025 06/20/2023, 12/30, 07/05/2021 Alcohol/Substance Use Screening 09/02/2025 09/02/2024 Depression Screening 09/02/2025 09/02/2024, 09/03/19 Diabetes: Hemoglobin A1C 09/02/2025 025, 06/01/2023, 12/22/2022, Additional history exists Disability Screening 09/02/2025 09/02/2024 SDOH Screening 09/02/2025 09/02/2024 Tobacco Screening 09/02/2025 09/02/2024 Cervical Cancer Screening 06/30/2026 HPV/Cotest 06/30/2026 06/30/2021 Pap Smear 06/30/2026 06/30/2021 Lipid Panel 06/01/2028 06/01/2023, 05/31/2021 [...] INFLUENZA B (ID NOW RAPID MOLECULAR) Routine 09/09/2024 9:16 AM EDT Stuffy and runny nose POCT INFLUENZA A (ID NOW RAPID MOLECULAR) Routine 09/09/2024 9:16 AM EDT Stuffy and runny nose POCT RAPID COVID ANTIGEN Routine 09/09/2024 9:13 AM EDT Stuffy and runny nose XR FOOT 3+ VIEWS RIGHT Routine 10:36 AM EDT Foot pain, right POCT GLYCATED HEMOGLOBIN, TOTAL Routine 09/02/2024 9:29 AM EDT Prediabetes POCT GLUCOSE Routine 09/02/2024 9:29 AM EDT Prediabetes BITEWINGS - 4 RADIOGRAPHIC IMAGES Routine 06/28/2023 [...] Recently Relevant to Health Maintenance Results * POCT Rapid Influenza B BATISTA ID NOW (09/09/2024 9:16 AM EDT) Influenza B Negative Negative, Indeterminate [facility] QC Media Lot # [id number] [facility] Lot# Expiration Date 100,826 [facility] Swab 09/09/2024 9:16 AM EDT us Thony Christensen MD POINT OF CARE TEST ENTER/EDIT OR DERABLES Final Result Performing Organization Address City/[facility]/ZIP Co de Phone Number [facility] [address] [place] [phone] * POCT Rapid Influenza A BATISTA ID NOW (09/09/2024 9:16 AM EDT) Influenza A Negative Negative, Indeterminate [facility] QC Media Lot # [id number] [facility] Lot# Expiration Date 100,826 [facility] Swab 09/09/2024 9:16 AM EDT us Thony Christensen MD POINT OF CARE TEST ENTER/EDIT OR DERABLES Final Result Performing Organization Address City/[facility]/ZIP Co de Phone Number [facility] [address] [place] [phone] * POCT Rapid Covid-19 BinaxNOW (09/09/2024 9:13 AM EDT) Rapid COVID Ag Negative QC Media Lot # [id number] Lot# Expiration Date [id number] 09/09/2024 9:13 AM EDT us Thony Christensen MD POINT OF CARE TEST ENTER/EDIT OR DERABLES Final Result * XR Foot 3+ Views Right (09/02/2024 10:36 AM EDT) Anatomical Region Laterality Modality Lower Extremities, Foot Right Radiogra phic Imaging 09/02/2024 10:3 6 AM EDT Narrative 09/02/2024 11:34 [place] [address] XRay Report Signed Patient: Jennifer George MR#: [id number] : 1980 Acct:[id number] Age/Sex: 44 / F ADM Date: 09/02/24 Loc: HO.HHCX Attending Dr: Lupe Hinton MD Ordering Physician: Lupe Nolen MD Date of Service: 09/02/24 Procedure(s): XR foot RT min 3V Accession Number(s): [id number] cc: Lupe Nolen MD EXAMINATION: XR FOOT, RIGHT CLINICAL INFORMATION: chronic pain in right foot in base of great toe and top of foot. COMPARISON: 09/03/2023. TECHNIQUE: AP, lateral, and oblique views of the right foot. FINDINGS: There is no fracture, dislocation, or suspicious bone lesion. There is a mild pes planus deformity. Mild hallux valgus. There is normal alignment otherwise. Joint spaces are largely preserved. No erosions present. Minimal degenerative spurring along the dorsal aspects of the tarsometatarsal and intertarsal joints. There there are small dorsal and small plantar calcaneal spurs. There is mild soft tissue prominence overlying the ventral forefoot and midfoot. XR/XR foot RT min 3V IMPRESSION: 1. No acute bony abnormalities of the right foot. 2. Mild pes planus deformity. Mild hallux valgus. 3. Small dorsal and plantar calcaneal spurs. Electronically signed by: Petr Don MD 09/02/2024 11:31 AM EDT RP Dictated By: Petr Don MD Signed By: <Electronically signed by Petr Don MD in OV> 09/02/24 1131 DD/ 1036 TD/TT: 09/02/24 1055 Candy Roller: Procedure Note Donotuseinterpreter, Image - 09/02/[address] [address] XRay Report Signed Patient: Jennifer GeorgeMR#: [id number] : 1980Acct:[id number] Age/Sex: 44 / FADM Date: 09/02/24 Loc: HO.HHCX Attending Dr: Lupe Hinton MD Ordering Physician: Lupe Nolen MD Date of Service: 09/02/24 Procedure(s): XR foot RT min 3V Accession Number(s): [id number] cc: Lupe Nolen MD EXAMINATION: XR FOOT, RIGHT CLINICAL INFORMATION: chronic pain in right foot in base of great toe and top of foot. COMPARISON: 09/03/2023. TECHNIQUE: AP, lateral, and oblique views of the right foot. FINDINGS: There is no fracture, dislocation, or suspicious bone lesion. There is a mild pes planus deformity. Mild hallux valgus. There is normal alignment otherwise. Joint spaces are largely preserved. No erosions present. Minimal degenerative spurring along the dorsal aspects of the tarsometatarsal and intertarsal joints. There there are small dorsal and small plantar calcaneal spurs. There is mild soft tissue prominence overlying the ventral forefoot and midfoot. XR/XR foot RT min 3V IMPRESSION: 1. No acute bony abnormalities of the right foot. 2. Mild pes planus deformity. Mild hallux valgus. 3. Small dorsal and plantar calcaneal spurs. Electronically signed by: Petr Don MD 09/02/2024 11:31 AM EDT RP Dictated By: Petr Don MD Signed By: <Electronically signed by Petr Don MD in OV> 09/02/24 1131 DD/ 1036 TD/TT: 09/02/24 1055 Candy Roller: Lupe Hinton MD IMG XR PROCEDURES Final Result * POCT HGB A1C (09/02/2024 9:29 AM EDT) Hemoglobin A1C 5.7 4.0 - 6.0 % QC Media Lot # [id number] Lot# Expiration Date 955,027 Blood 09/02/2024 9:29 AM EDT Lupe Hinton MD POINT OF CARE MAGGIE T ENTER/EDIT ORDERABLES Final Result * POCT Glucose (09/02/2024 9:29 AM EDT) Glucose Blood, POC 113 60 - 200 mg/dL QC Media Lot # [id number] Lot# Expiration Date Blood Capillary blood specimen / Unknown 09/02/2024 9:29 AM EDT Lupe Hinton MD POINT OF CARE MAGGIE T ENTER/EDIT ORDERABLES Final Result * BI Mammogram Diagnostic Tomosynthesis Bilateral (06/20/2023 10:26 AM EST) Anatomical Region Laterality Modality Breast Bilateral Mammography 06/20/2023 10:2 6 AM EST Narrative 07/04/2023 12:25 PM EST [place] [facility] [address] W[place], [place] [address] Mammography Report Signed Patient: Jennifer George MR#: [id number] : 1980 Acct:[id number] Age/Sex: 43 / F ADM Date: 06/20/23 Loc: HO.MAMMO Attending Dr: Lpue Hinton MD Ordering Physician: Lupe Nolen MD Re sults: 1Negative Date of Service: 06/20/23 Follow Up: 1 Year From Orig [facility] Mammogram Procedure(s): MM tomosynthesis diagnostic BI Accession Number(s): [id number] cc: Lupe Nolen MD EXAMINATION: MM DIAGNOSTIC [...] in OV> 07/04/23 1221 DD/ 1026 TD/TT: Candy Roller: Procedure Note Donotuseinterpreter, Image - 07/04/2023 [facility] [address] [place] [address] Mammography Report Signed Patient: Jennifer GeorgeMR#: [id number] : 1980Acct:[id number] Age/Sex: 43 / FADM Date: 06/20/23 Loc: HOJAKY Attending Dr: Lupe Hinton MD Ordering Physician: Lupe Nolen sults: 1Negative Date of Service: 06/20/23Follow Up: 1 Year From Orig ina Mammogram Procedure(s): MM tomosynthesis diagnostic BI Accession Number(s): [id number] cc: Lupe Nolen MD EXAMINATION: MM DIAGNOSTIC [...] in OV> 07/04/23 1221 DD/ 1026 TD/TT: Candy Roller: us Lupe Hinton MD IMG BI PROCEDURES Final Result * (ABNORMAL) Hepatitis C Antibody with Reflex to HCV, RNA, Quantitative, Real- Time PCR (06/01/2023 1:10 PM EST) Hepatitis C Antibody Reactive( A) Nonreactive [facility] Comment:Presumptive evidence of antibodies to HCV. Blood Venous blood specimen / Unknown 06/01/2023 1:10 PM EST 06/01/2023 4:02 PM EST us Lupe Hinton MD LAB BLOOD ORDERAB LES Final Result Performing Organization Address [facility]/ZIP Co de Phone Number [facility] [address] [place] [phone] * HIV-1/2 Antigen and Antibodies, Fourth Generation, with Reflexes (06/01/2023 1:10 PM EST) Pathologist [facility] HIV AB/AG Nonreactive Nonreactive [facility] Comment:HIV-1 p24 Ag and/or HIV-1/HIV-2 Ab not detected.A test result that is nonreactive does not exclude thepossibility of exposure to or infection with HIV-1 and/orHIV-2. Nonreactive results in this assay for individualswith prior exposure to HIV-1 and/or HIV-2 may be due toantigen and antibody levels that are below the limit ofdetection of this assay.The [employer] HIV Ag/Ab Combo assay result andsupplemental assay results should be interpreted inconjunction with the patient's clinical presentation,history and other laboratory results. If the results areinconsistent with clinical evidence, additional testing issuggested to confirm the result. Blood Venous blood specimen / Unknown 06/01/2023 1:10 PM EST 06/01/2023 4:02 PM EST us Lupe Hinton MD LAB BLOOD ORDERAB LES Final Result Performing Organization Address City/[facility]/ZIP Co de Phone Number [facility] [address] [place] [phone] * (ABNORMAL) Lipid Panel, Standard (06/01/2023 1:10 PM EST) Triglycerides 73 <150 mg/dL [facility] Comment:Desirable Triglyceri de: less than 150 mg/dLBorderline High Triglyceride 150-199 mg/dLHigh Triglyceride: 200-499 mg/dLVery High Triglyceride: greater than or equal to 5OO mg/dL Cholesterol 163 <200 mg/dL [facility] Comment:Desirable Cholestero l: less than 200 mg/dLBorderline High Cholesterol: 200-239 mg/dLHigh Cholesterol: greater than 239 mg/dL LDL Cholesterol Calculated 102(H) <100 mg/dL [facility] Comment:Desirable LDL: less than 100 mg/dLNear Optimal/Above Optimal LDL: 110- 129 mg/dLBorderline High LDL: 130-159 mg/dLHigh LDL: 160-189 mg/dLVery High LDL: greater than or equal to 190 mg/dL HDL Cholesterol 47 >40 mg/dL [facility] Comment:Desirable HDL: great er than 40 mg/dL Note: This HDL assay may give artificially low results in patients with liver disease. Blood Venous blood specimen / Unknown 06/01/2023 1:10 PM EST 06/01/2023 4:02 PM EST us Lupe Hinton MD LAB BLOOD ORDERAB LES Final Result [facility] [address] [place] [phone] * THINPREP TIS PAP AND HPV mRNA E6/E7, CT/NG, TRICH (06/30/2021 12:00 AM EST) Chlamydia trachomatis RNA, TMA, Urogenital NOT DETECTED NOT DETECTED [facility] Clinical Information: None given [facility] COMMENT SEE COMMENT [facility] Comment: The analytical performance characteristics of this assay, when used to test SurePath(TM) specimens have been determined by [employer]. The modifications have not been cleared or approved by the FDA. This assay has been validated pursuant to the CLIA regulations and is used for clinical purposes. For additional information, please refer to https://[employer]ellon/faq/BUM051 (This link is being provided for information/ educational purposes only.) COMMENT SEE COMMENT [facility] Comment: EXPLANATORY NOTE: The Pap is a screening test for cervical cancer. It is not a diagnostic test and is subject to false negative and false positive results. It is most reliable when a satisfactory sample, regularly obtained, is submitted with relevant clinical findings and history, and when the Pap result is evaluated along with historic and current clinical information. COMMENT: This Pap test has been evaluated with computer assisted technology. [facility] Explosive Ordnance Technician: SEE COMMENT [facility] Comment: OtilioXInocencio CT(ASCP) CT screening location: [place] [address] HPV nRNA E6/E7 Not Detected Not Detected [facility] Comment: Methodology: Professional Volleyball Player-Mediated Amplification This assay detects E6/E7 viral messenger RNA (mRNA) from 14 high-risk HPV types (16,18,31,33,35,39,45,51,52,56,58,59,66,68). The analytical performance characteristics of this assay have been determined by [employer]. The modifications have not been cleared or approved by the FDA. This assay has been validated pursuant to the CLIA regulations and is used for clinical purposes. For additional information, please refer to http://[employer]/faq/PZH442s7 (This link if provided for information/ educational purposes only.) Interpretation/Re sult: Negative for intraepithelial lesion or malignancy. [facility] LMP: NONE GIVEN [facility] Neisseria gonorrhoeae RNA, TMA, Urogenital NOT DETECTED NOT DETECTED [facility] Prev. BX: NONE GIVEN [facility] Prev. PAP: NONE GIVEN [facility] SOURCE: None given [facility] Statement Of Adequacy: SEE COMMENT [facility] Comment: Satisfactory for evaluation. Endocervical/transformation zone component present. Trichomonas vaginalis, QL, TMA, PAP Vial NOT DETECTED NOT DETECTED [facility] Comment: The analytical performance characteristics of this assay have been determined by [employer]. The modifications have not been cleared or approved by the FDA. This assay has been validated pursuant to the CLIA regulations and is used for clinical purposes. For additional information, please refer to http://education.[employer]/ faq/Trichomonastma (This link is being provided for information/ educational purposes only.) 06/30/2021 us Malathi Hall DIGITAL RECRUITER LAB PATHOLOGY ORDERABLES F inal Result [facility] [address] from Last 3 Months or Most Recently Relevant to Health Maintenance Insurance (Home) (Work) [address] [employer] [facility] [place] 2 (Home) (Work) [address] DENTAL - HSN FULL (MEDICAID) ESIS PARKS Care Teams Associate Scientist Relationship Specialty Start Date End Date Lupe Nolen MD [address] [place] [phone] PCP - General Internal Medicine 02/06/23
== END 2024-10-23 11:42 | disposition home or self-care (01) ==
LOC: HO.MAMMO 11:41
PROVIDERS: Visit Provider Student in an Organized Health Care Education/Training Program
DX: Z12.31 Encounter for screening mammogram for malignant neoplasm of breast (principal)
CPT/HCPCS: 77063; 77067

== ENCOUNTER → 2024-10-23 12:45 | Outpatient (BNV) | payer OTHER, SELFPAY | PROVIDERS: Visit Provider Internal Medicine | DX: Z12.31 Encounter for screening mammogram for malignant neoplasm of breast (principal) | CPT/HCPCS: 77063; 77067 ==

== ENCOUNTER 2024-10-24 08:41 | Outpatient (REF) | payer OTHER, SELFPAY ==
--- OUTSIDE RECORDS SUMMARY | 2024-10-24 08:55 | XMS_ITS | Patient Health Record ---
Author Organization [address] [place] [address] Address [address] [place], [place] [phone] Support Name Relationship Address Phone KHADIJAH ALCARAZ Guarantor Unknown Un available Reason For Referral No Information Plan Of Treatment No Information
[2024-10-24 11:31] LABS: Hematocrit 35.1 % (37.0-47.0); Hemoglobin 11.2 g/dl (12.0-16.0); Mean Corpuscular HGB Conc 31.9 g/dl (31.0-35.0); Mean Corpuscular Hemoglobin 25.2 pg (27.0-33.0); Mean Corpuscular Volume 78.9 fL (80.0-98.0); Mean Platelet Volume 11.8 fL (9.4-12.3); Platelet Count 190 X10*3/uL (160-400); Red Blood Count 4.45 X10*6/uL (4.20-5.50); Red Cell Distribution Width 16.8 % (11.0-16.0); White Blood Count 6.9 X10*3/uL (4.8-10.8)
[2024-10-24 11:42] LABS: Estimated Average Glucose 126 mg/dL
[2024-10-24 11:53] LABS: Creatinine Urine 97.56 mg/dL; Microalbumin Urine < 5.0 mg/L
[2024-10-24 11:57] LABS: Alanine Aminotransferase 16 U/L (0-31); Alkaline Phosphatase 54 U/L (39-117); Anion Gap 11 (12-20); Aspartate Amino Transferase 17 U/L (5-31); Bilirubin Total 0.3 mg/dL (0.0-1.0); Blood Urea Nitrogen 12 mg/dL (9-16); Calcium 8.7 mg/dL (8.4-10.2); Carbon Dioxide 24 mmol/L (22-29); Chloride 106 mmol/L (96-108); Cholesterol 164 mg/dL (<200); Estimated Glomerular Filt Rate > 60; Glucose Random 100 mg/dL (60-115); HDL Cholesterol 42 mg/dL (>40); Iron 42 mcg/dL (30-160); LDL Cholesterol Calculated 103 mg/dL (<100); Percent Iron Saturation 15 % (15-50); Potassium 4.1 mmol/L (3.3-5.1); Sodium 137 mmol/L (135-145); Total Iron Binding Capacity 279 mcg/dL (228-428); Total Protein 6.8 g/dL (6.5-8.0); Triglycerides 99 mg/dL (<150); Unsaturated Iron Binding 237 ug/dL
[2024-10-24 12:00] LABS: Syphilis Screen Nonreactive (Nonreactive)
[2024-10-24 12:02] LABS: Ferritin 9 ng/mL (10-250); HBS Num1 0.54 mIU/mL (0-7.99); HBc Num1 0.12 S/CO (0.00-0.79); HBsAGNum1 0.26 S/CO (0.00-0.99); HIV AB/AG Nonreactive (Nonreactive); HIV Num 1 0.05 S/CO (0.00-0.99); Hepatitis B Core Antibody Nonreactive (Nonreactive); Hepatitis B Surface Antigen Negative (Negative); TSH reflex Free T4 1.43 uIU/mL (0.32-4.0); Vitamin D 25-OH Total 21.1 ng/mL (>30); ~HepC Num1 1.22 S/CO (0.00-0.79); ~Hepatitis B Surface Antibody NONREACTIVE (Nonreactive); ~Hepatitis C Antibody Reactive (Nonreactive)
[2024-10-28 03:34] LABS: Rubella IgG Antibody 1.97 Index
[2024-10-29 21:44] LABS: HCV Log PCR <1.18 NOT DETECTED Log IU/mL (NOT DETECTED); HepC Viral Load <15 NOT DETECTED IU/mL (NOT DETECTED)
== END 2024-10-24 08:42 | disposition home or self-care (01) ==
LOC: HO.HHCL 08:41
PROVIDERS: PCP Student in an Organized Health Care Education/Training Program; Visit Provider Student in an Organized Health Care Education/Training Program
DX: Z00.00 Encounter for general adult medical examination without abnormal findings (principal)
CPT/HCPCS: 36415; 80053; 80061; 82043; 82306; 82570; 82728; 83036; 83540; 84443; 85027; 86704; 86706; 86735; 86762; 86765; 86780; 86803; 87340; 87389; 87522

== ENCOUNTER 2024-11-18 09:34 | Outpatient (REF) | payer OTHER, SELFPAY ==
--- NOTE | ~2024-11-18 | XR_ITS ---
EXAMINATION: XR FOOT, RIGHT CLINICAL INFORMATION: Pain in lateral right foot after stepping into hole COMPARISON: 09/02/2024 TECHNIQUE: AP, lateral, and oblique views of the right foot. FINDINGS: No fracture, dislocation, or suspicious bone lesion. No malalignment. Joint spaces are preserved. Normal plantar arch. There are small dorsal and plantar calcaneal spurs. There is mild diffuse soft tissue edema. XR/XR foot RT min 3V IMPRESSION: No acute bony abnormalities of the right foot. Mild soft tissue swelling diffusely. Electronically signed by: Petr Don MD 11/18/2024 10:02 AM EDT
--- OUTSIDE RECORDS SUMMARY | 2024-11-18 10:13 | XMS_ITS | Clinical Summary ---
Author Organization [employer] Address [address] [place] [address] Care Team Providers Care Tier In Name Role Phone Lupe Nolen MD Primary [...] REST AND RECORD NUMBERS 06/30/19 22 Active acetaminophen (Tylenol) 500 MG tablet Take 2 tablets (1,000 mg) by mouth every 6 (six) hours if needed for moderate pain or fever for up to 25 doses. 50 tablet 05/27/19 25 Active albuterol 108 (90 Base) MCG/ACT inhalerIndica tions:WOODRUFF (dyspnea on exertion) Inhale 2 puffs every 6 (six) hours if needed for wheezing. 18 g 11 05/27/19 25 026 Active Spacer/Aero-H olding Chambers (OptiChamber Tiffany) misc 1 each every 4 (four) hours if needed (asthma). 1 each 05/27/19 25 Active Ascorbic Acid (vitamin C) 250 MG tablet Take 1 tablet (250 mg) by mouth Once per day. 90 tablet 10/29/19 25 026 Active docusate sodium (Colace) 100 MG capsule Take 1 tab po bid prn constipation 60 capsule 3 10/29/19 25 Active psyllium (Metamucil Smooth Texture) 58.6 % powder Take 5.12 g (3 g of fiber) by mouth 2 times daily. 283 g 2 10/29/19 25 026 Active ferrous gluconate (Fergon) 324 (38 Fe) MG tablet Take 1 tablet (324 mg) by mouth 4 (four) times a week. 90 tablet 2 10/29/19 25 Active cholecalcifer ol (Vitamin D-3) 125 MCG (5000 UT) capsule Take 1 capsule (125 mcg) by mouth Once per day. 90 capsule 1 10/29/19 25 026 Active cholecalcifer ol (Vitamin D-3) 50 MCG (2000 UT) capsule Take 1 capsule (50 mcg) by mouth Once per day. 90 capsule 3 05/27/19 25 025 Discontinued(R eorder (will not trigger notification to Pharmacy)) ferrous gluconate (Fergon) 324 (38 Fe) MG tablet Take 1 tablet (324 mg) by mouth 3 (three) times a week. 45 tablet 2 09/04/19 25 025 Discontinued(R eorder (will not trigger notification to Pharmacy)) fluticasone (Flonase) 50 MCG/ACT nasal spray Administer 2 sprays into each nostril Once per day. Shake gently. Before first use, prime pump. After use, clean tip and replace cap. 16 g 2 09/10/19 25 025 Discontinued(O ther) Active Problems Problem Noted Date Diagnosed Date [...] in the context of Jennifer moved from [place] two years ago and is struggling to adjust, she is also the go to person in her family and she feels overwhelm. She has 2 jobs and is currently in school. PLAN: New/Additional Services needed Off-site services for Behavioral Health Integration Plan External OP therapy referral Patient Self Plan Patient to utilize skills provided in intervention and Patient to reach out to [facility] team as needed Hypertension 12/22/2022 [...] Encounters Date Type Department Care Team Description 11/18/2024 9:00 AM EDT Office Visit [facility] [place] [address] Acute pain of right foot (Primary Dx) 11/18/2024 Travel 11/10/2024 11:00 AM EDT Clinical Support [facility] [place] [address] Severe obesity (CMS/HCC) (Primary Dx) 11/10/2024 Telephone [facility] [place] [address] Lupe Nolen MD Appointment Request 11/10/2024 Travel 10/30/2024 Telephone [facility] [place] [address] Lupe Nolen MD FYI 10/28/2024 9:00 AM EDT Office Visit [facility] [place] [address] Lupe Nolen MD Family history of malignant neoplasm (Primary Dx); Need for vaccination; Encounter for immunization; Primary hypertension; Prediabetes; Severe obesity (CMS/HCC); Vitamin D deficiency; Encounter for preventive health examination; Other iron deficiency anemia 10/28/2024 Travel 10/27/2024 Telephone [facility] [place] [address] Lupe Nolen MD chartprep 10/24/2024 Results Follow-Up [facility] [place] [address] Lupe Nolen MD POCT Glucose, POCT HGB A1C, Albumin, Random Urine W/Creatinine, Additional followed-up results: 15 10/13/2024 9:00 AM EDT Nutrition [facility] [place] [address] Severe obesity (CMS/HCC) (Primary Dx) 10/13/2024 Travel 10/12/2024 Travel 09/09/2024 9:00 AM EDT Office Visit [facility] [address] [place] [phone] Thony Christensen MD Stuffy and runny nose (Primary Dx); Hoarseness; Sneezing; Acute cough; Seasonal allergies 09/09/2024 Travel 09/02/2024 9:15 AM EDT Office Visit [address] [address] Lupe Nolen MD Prediabetes (Primary Dx); Dietary counseling; Exercise counseling; Foot pain, right; Severe obesity (CMS/HCC); Uterine leiomyoma, unspecified location; Breast cancer screening by mammogram; Hair loss; Annual physical exam; Primary hypertension; Encounter for preventive health examination; Umbilical hernia without obstruction and without gangrene; Alopecia 09/02/2024 Travel 08/29/[address] [address] Lupe Nolen MD chartprep 08/25/[address] [address] Lupe Nolen MD Nurse Triage 08/20/2024 Patient Outreach [facility] [address] [place], [place] [phone] Lupe Nolen MD Pre-visit Planning ([facility] unable to reach [facility]) from Last 3 Months Immunizations Immunization Administration [...] housing situation today? I have justin costa 09/02/[address] you li [...] Sign Reading Time Taken Comments Blood Pressure 141/87 11/18/2024 8:48 AM EDT Pulse 90 11/18/2024 8:48 AM EDT Temperature 36.8 C (98.2 F) 11/18/2024 8:48 AM EDT Respiratory Rate 18 11/18/2024 8:48 AM EDT Oxygen Saturation 98% 11/18/2024 8:48 AM EDT Inhaled Oxygen Concentration - - Weight 152 kg (336 lb) 11/18/2024 8:48 AM EDT Height 172.7 cm (5' 8 ) 10/28/2024 9:04 AM EDT Body Mass Index 51.09 10/28/2024 9:04 AM EDT Plan of Treatment Health Maintenance Due Date Last Done Comments Dental X-Ray: Full Mouth 1980 Family Planning (PISQ) 1995 HPV Vaccines (1 - 3-dose series) 1995 DTaP/Tdap/Td Vaccines (1 - Tdap) 1999 Hepatitis B Vaccines (1 of 3 - 19+ 3-dose series) 1999 Pneumococcal Vaccine: Pediatrics (0 to 5 Years) and At-Risk Patients (6 to 49) Years (1 of 2 - PCV) 1999 Dental Prophylaxis 11/22/2022 05/24/2022 Dental Oral Exam 12/28/2023 06/28/2023, 05/24/2022 COVID-19 Vaccine ( - 2023- season) 2023 Dental X-Ray: Bitewings 06/28/2024 06/28/2023, 05/24 Influenza Vaccine (#1) 2024 Alcohol/Substance Use Screening 09/02/2025 09/02/2024 Depression Screening 09/02/2025 09/02/2024, 09/03/19 SDOH Screening 09/02/2025 09/02/2024 Diabetes: Hemoglobin A1C 10/24/2025 025, 09/02/2024, 06/01/2023, Additional history exists Tobacco Screening 10/28/2025 10/28/2024 Disability Screening 11/18/2025 11/18/2024 Cervical Cancer Screening 06/30/2026 HPV/Cotest 06/30/2026 06/30/2021 Pap Smear 06/30/2026 06/30/2021 Mammogram 10/23/2026 10/23/2024, 06/01, 01/17/2022, Additional history exists Lipid Panel 10/24/2029 10/24/2024, 02/0 05/2023, 05/31/2021 Zoster Vaccines (1 of 2) 2030 RSV Patients and Patients Aged 60 years or older (1 - 1-dose 75+ series) 2055 HIV Screening Completed 10/24/2024, 02/0 05/2023, 05/31/2021 Hepatitis C Screening Completed 10/24/2024 , 10/24/2024, 06/01/2023, Additional history exists HIB Vaccines Aged Out [...] Procedure Name Priority Date/Time Associated Diagnosis Comments XR FOOT 3+ VIEWS RIGHT Routine 9:00 AM EDT Acute pain of right foot POCT , URINE Routine 10/28/2024 9:54 AM EDT Need for vaccination HEPATITIS C VIRAL RNA, QUANTITATIVE, REAL-TIME PCR Routine 10/24/2024 9:00 AM EDT MEASLES, MUMPS, AND RUBELLA (MMR) AB (IGG) PANEL, IMMUNE STATUS Routine 10/24/2024 9:00 AM EDT Annual physical exam HEPATITIS B SURFACE ANTIGEN, EIA Routine 10/24/2024 9:00 AM EDT Annual physical exam HEPATITIS B SURFACE ANTIBODY, QUALITATIVE Routine 10/24/2024 9:00 AM EDT Annual physical exam HEPATITIS B CORE AB TOTAL Routine 10/24/2024 9:00 AM EDT Annual physical exam VITAMIN D,25-OH,TOTAL,IA Routine 10/24/2024 9:00 AM EDT Annual physical exam TSH W/REFLEX TO FT4 Routine 10/24/2024 9 :00 AM EDT Annual physical exam SYPHILIS SCREEN Routine 10/24/2024 9:00 AM EDT Annual physical exam LIPID PANEL, STANDARD Routine 10/24/2024 9:00 AM EDT Annual physical exam HIV 1/2 ANTIGEN/ANTIBODY, FOURTH GENERATION W/RFL Routine 10/24/2024 9:00 AM EDT Annual physical exam HEPATITIS C AB W/REFL TO HCV RNA, QN, PCR Routine 10/24/2024 9:00 AM EDT Annual physical exam HEMOGLOBIN A1C Routine 10/24/2024 9:00 AM EDT Annual physical exam COMPREHENSIVE METABOLIC PANEL Routine 10/24/2024 9:00 AM EDT Annual physical exam FERRITIN Routine 10/24/2024 9:00 AM EDT Annual physical exam IRON AND TOTAL IRON BINDING CAPACITY Routine 10/24/2024 9:00 AM EDT Annual physical exam CBC Routine 10/24/2024 9:00 AM EDT Annual physical exam ALBUMIN, RANDOM URINE W/CREATININE Routine 10/24/2024 9:00 AM EDT Annual physical exam BI MAMMOGRAM SCREENING TOMOSYNTHESIS BILATERAL Routine 10/23/2024 11:55 AM EDT Breast cancer screening by mammogram POCT INFLUENZA B (ID NOW RAPID MOLECULAR) [...] ESTABLISHED PATIENT Routine 06/28/2023 1:30 PM EST Full PROPHYLAXIS - ADULT Routine 05/24/2022 11:00 AM EST THINPREP IMAGING PAP AND HPV MRNA E6/E7, WITH CT/NG, TRICHOMONAS Routine 06/30/2021 12:00 AM EST from Last 3 Months or Most Recently Relevant to Health Maintenance Results * XR Foot 3+ Views Right (11/18/2024 9:00 AM EDT) Only the most recent of2 resultswithin the time period is included. Anatomical Region Laterality Modality Lower Extremities, Foot Right [facility] 11/18/2024 9:00 AM EDT Narrative 11/18/2024 10:04 [place] [address] XRay Report Signed Patient: Jennifer George MR#: [id number] : 1980 Acct:[id number] Age/Sex: 44 / F ADM Date: 11/18/24 Loc: .HHCX Attending Dr: Ela Venegas MD Ordering Physician: Ela Venegas MD Date of Service: 11/18/24 Procedure(s): XR foot RT min 3V Accession Number(s): [id number] cc: Ela Venegas MD EXAMINATION: XR FOOT, RIGHT CLINICAL INFORMATION: Pain in lateral right foot after stepping into hole COMPARISON: 09/02/2024 TECHNIQUE: AP, lateral, and oblique views of the right foot. FINDINGS: No fracture, dislocation, or suspicious bone lesion. No malalignment. Joint spaces are preserved. Normal plantar arch. There are small dorsal and plantar calcaneal spurs. There is mild diffuse soft tissue edema. XR/XR foot RT min 3V IMPRESSION: No acute bony abnormalities of the right foot. Mild soft tissue swelling diffusely. Electronically signed by: Petr Don MD 11/18/2024 10:02 AM EDT RP Dictated By: Petr Don MD Signed By: <Electronically signed by Petr Don MD in OV> 11/18/24 1002 DD/ 9 TD/TT: 11/18/24 0910 Toe Stripper: Procedure Note Donotuseinterpreter, Image - 11/18/[address] [address] XRay Report Signed Patient: Carl George#: [id number] : 1980Acct:[id number] Age/Sex: 44 / FADM Date: 11/18/24 Loc: .HHX Attending Dr: Ela Venegas MD Ordering Physician: Ela Venegas MD Date of Service: 11/18/24 Procedure(s): XR foot RT min 3V Accession Number(s): [id number] cc: Ela Venegas MD EXAMINATION: XR FOOT, RIGHT CLINICAL INFORMATION: Pain in lateral right foot after stepping into hole COMPARISON: 09/02/2024 TECHNIQUE: AP, lateral, and oblique views of the right foot. FINDINGS: No fracture, dislocation, or suspicious bone lesion. No malalignment. Joint spaces are preserved. Normal plantar arch. There are small dorsal and plantar calcaneal spurs. There is mild diffuse soft tissue edema. XR/XR foot RT min 3V IMPRESSION: No acute bony abnormalities of the right foot. Mild soft tissue swelling diffusely. Electronically signed by: Petr Don MD 11/18/2024 10:02 AM EDT RP Dictated By: Petr Don MD Signed By: <Electronically signed by Petr Don MD in OV> 11/18/24 1002 DD/ 0900 TD/TT: 11/18/2410 Toe Stripper: Ela Venegas MD IMG XR PROCEDURES Final Resul t * POCT Urine (10/28/2024 9:54 AM EDT) Preg Test, Ur Negative Negative, Indeterminate, None Detected, Invalid, Specimen unsatisfactory for evaluation, Weakly Positive, 2+ QC Media Lot # [id number] Lot# Expiration Date [id number] Urine 10/28/2024 9:54 AM EDT Lupe Hinton MD POINT OF CARE MAGGIE T ENTER/EDIT ORDERABLES Final Result * Syphilis Screen (10/24/2024 9:00 AM EDT) Syphilis Screen Nonreactive Nonreactive [facility] Blood 10/24/2024 9:00 AM EDT 10/24/2024 11:17 AM EDT Lupe Hinton MD LAB BLOOD ORDERAB LES Final Result [facility] [address] [place] [phone] * (ABNORMAL) Vitamin D, 25-Hydroxy, Total, Immunoassay (10/24/2024 9:00 AM EDT) Vitamin D 25-OH Total 21.1(L) >30 ng/mL [facility] Comment: Health Based Reference Values*< 20 ng/mL Gqerpyabd27-99 ng/mL Insufficient> 30 ng/mL Sufficient*Terrell SALAZAR. N Engl J Med. 2007;357:266-280There is no well-established upper level of normal vitamin Dlevels. Some laboratories use 50 ng/mL as an upper limit ofnormal. However, toxicity is patient-dependent and may occurat any level. Careful correlation with the patient'spresentation is necessary and, if there is concern forvitamin D toxicity, treatment should be consideredirrespective of the serum level.Care must be taken in interpreting Vitamin D results fromdifferent laboratories and methodologies. Published datademonstrated that results from patients undergoinghemodialysis may show a negative bias when tested withvarious automated 25-OH vitamin D assays when compared toLC-MS/MS.When testing samples from patients whose predominant form ofVitamin D is Vitamin D2, such as patients receiving VitaminD2 supplementation, results that are subtherapeutic shouldbe confirmed with another method such as LC-MS/MS. Blood Venous blood specimen / Unknown 10/24/2024 9:00 AM EDT 10/24/2024 11:17 AM EDT Lupe Hinton MD LAB BLOOD ORDERAB LES Final Result Performing Organization Address [facility]/ZIP Co de Phone Number [facility] [address] [place] [phone] * TSH with Reflex to Free T4 (10/24/2024 9:00 AM EDT) TSH reflex Free T4 1.43 0.32 - 4.0 uIU/mL [facility] Blood 10/24/2024 9:00 AM EDT 10/24/2024 11:17 AM EDT Lupe Hinton MD LAB BLOOD ORDERAB LES Final Result Performing Organization Address [facility]/ZIP Co de Phone Number [facility] [address] [place] [phone] * (ABNORMAL) Measles, Mumps, and Rubella (MMR) Antibodies??(IgG) Panel, Immune Status (10/24/2024 9:00 AM EDT) Mumps Virus IgG Antibody 10.70(A) AU/mL [facility] Comment:AU/mL Interpretation ------- <9.00 Not consistent with immunity9.00-10.99 Equivocal>10.99 Consistent with immunityThe presence of mumps IgG antibody suggests immunizationor past or current infection with mumps virus. Rubella IgG Antibody 1.97 Index [facility] Comment:Index Interpretation ----- <0.90 Not consistent with immunity 0.90-0.99 Equivocal > or = 1.00 Consistent with immunityThe presence of rubella IgG antibody suggestsimmunization or past or current infection withrubella virus.THIS TEST WAS PERFORMED AT:[employer] [address] [phone] MOLINA MD Rubeola IgG (Measles) 58.80 AU/mL [facility] Comment:AU/mL Interpretation ----- <13.50 Not consistent with anwvucyb36.50-16.49 Equivocal>16.49 Consistent with immunityThe presence of measles IgG suggests immunization orpast or current infection with measles virus.For additional information, please refer [email or web address]/[email or web address](This link is being provided for informational/educational purposes only.) Blood 10/24/2024 9:00 AM EDT 10/24/2024 11:17 AM EDT Lupe Hinton MD LAB BLOOD ORDERAB LES Final Result [facility] [address] [place] [phone] [phone] * Hepatitis C Viral RNA, Quantitative, Real-Time PCR (10/24/2024 9:00 AM EDT) Hepatitis C Viral Load <15 NOT DETECTED NOT DETECTED IU/mL [facility] HCV Log PCR <1.18 NOT DETECTED NOT DETECTED Log IU/mL [facility] Comment:For additional infor mation, please refer [email or web address]/[email or web address](This link is being provided for informational/educational purposes only.)THIS TEST WAS PERFORMED AT:[employer] [address] [phone] MOLINA MD 10/24/2024 9:00 AM EDT 10/27/2024 4:36 PM EDT us Lupe Hinton MD LAB BLOOD ORDERAB LES Final Result Performing Organization Address City/[facility]/ZIP Co de Phone Number [facility] [address] [place] [phone] * Albumin, Random Urine W/Creatinine (10/24/2024 9:00 AM EDT) Creatinine, Urine 97.56 mg/dL [facility] Microalbumin Urine <5.0 mg/L [facility] Microalbum Creatinine Ratio Ur TNP <30 ug/mg cr [facility] Comment:Unable to calculate albumin/creatinine ratio due to lowmicroalbumin or creatinine result. Urine (Urine, Random) 10/24/2024 9:00 AM EDT 10/24/2024 10:54 AM EDT us Lupe Hinton MD LAB URINE ORDERAB LES Final Result Performing Organization Address [facility] Co de Phone Number [facility] [address] [place] [phone] * (ABNORMAL) Hepatitis C Antibody with Reflex to HCV, RNA, Quantitative, Real- Time PCR (10/24/2024 9:00 AM EDT) Hepatitis C Antibody Reactive( A) Nonreactive [facility] Comment:Presumptive evidence of antibodies to HCV. Blood Venous blood specimen / Unknown 10/24/2024 9:00 AM EDT 10/24/2024 11:17 AM EDT us Lupe Hinton MD LAB BLOOD ORDERAB LES Final Result Performing Organization Address [facility] Co de Phone Number [facility] [address] [place] [phone] * Iron And Total Iron Binding Capacity (10/24/2024 9:00 AM EDT) Iron 42 30 - 160 mcg/dL [facility] Total Iron Binding Capacity 279 228 - 428 mcg/dL [facility] Percent Iron Saturation 15 15 - 50 % [facility] Unsaturated Iron Binding 237 ug/dL [facility] Blood Venous blood specimen / Unknown 10/24/2024 9:00 AM EDT 10/24/2024 11:17 AM EDT us Lupe Hinton MD LAB BLOOD ORDERAB LES Final Result Performing Organization Address City/[facility]/ZIP Co de Phone Number [facility] [address] [place] [phone] * Hepatitis B surface antigen, EIA (10/24/2024 9:00 AM EDT) Pathologist [facility] Hepatitis B Surface Ag Negative Negative [facility] Blood Venous blood specimen / Unknown 10/24/2024 9:00 AM EDT 10/24/2024 11:17 AM EDT Lupe Hinton MD LAB BLOOD ORDERAB LES Final Result Performing Organization Address [facility]/ZIP Co de Phone Number [facility] [address] [place] [phone] * Hepatitis B Core Antibody, Total (10/24/2024 9:00 AM EDT) Pathologist [facility] Hepatitis B Core Antibody Nonreactive Nonreactive [facility] Blood Venous blood specimen / Unknown 10/24/2024 9:00 AM EDT 10/24/2024 11:17 AM EDT Lupe Hinton MD LAB BLOOD ORDERAB LES Final Result Performing Organization Address City/[facility] Co de Phone Number [facility] [address] [place] [phone] * HIV-1/2 Antigen and Antibodies, Fourth Generation, with Reflexes (10/24/2024 9:00 AM EDT) Pathologist [facility] HIV AB/AG Nonreactive Nonreactive [facility] Comment:HIV-1 p24 Ag and/or HIV-1/HIV-2 Ab not detected.A test result that is nonreactive does not exclude thepossibility of exposure to or infection with HIV-1 and/orHIV-2. Nonreactive results in this assay for individualswith prior exposure to HIV-1 and/or HIV-2 may be due toantigen and antibody levels that are below the limit ofdetection of this assay.The [employer] HIV Ag/Ab Combo assay result andsupplemental assay results should be interpreted inconjunction with the patient's clinical presentation,history and other laboratory results. If the results areinconsistent with clinical evidence, additional testing issuggested to confirm the result. Blood Venous blood specimen / Unknown 10/24/2024 9:00 AM EDT 10/24/2024 11:17 AM EDT us Lupe Hinton MD LAB BLOOD ORDERAB LES Final Result Performing Organization Address City/[facility]/ZIP Co de Phone Number [facility] [address] [place] [phone] * Hepatitis B Surface Antibody, Qualitative (10/24/2024 9:00 AM EDT) Pathologist [facility] ~Hepatitis B Surface Antibody NONREACTIVE Nonreactive [facility] Comment:Nonreactive: < 8.00 mIU/mL Blood Venous blood specimen / Unknown 10/24/2024 9:00 AM EDT 10/24/2024 11:17 AM EDT us Lupe Hinton MD LAB BLOOD ORDERAB LES Final Result Performing Organization Address City/[facility]/ZIP Co de Phone Number [facility] [address] [place] [phone] * (ABNORMAL) CBC (10/24/2024 9:00 AM EDT) White Blood Count 6.9 4.8 - 10.8 X10*3/uL [facility] Red Blood Count 4.45 4.20 - 5.50 X10*6/uL [facility] Hemoglobin 11.2(L) 12.0 - 16.0 g/dl [facility] Hematocrit 35.1(L) 37.0 - 47.0 % [facility] Mean Corpuscular Volume 78.9(L) 80.0 - 98.0 fL [facility] Mean Corpuscular Hemoglobin 25.2(L) 27.0 - 33.0 pg [facility] Mean Corpuscular HGB Conc 31.9 31.0 - 35.0 g/dl [facility] Red Cell Distribution Width 16.8(H) 11.0 - 16.0 % [facility] Platelet Count 190 160 - 400 X10*3/uL [facility] Mean Platelet Volume 11.8 9.4 - 12.3 fL [facility] NRBC Pct Auto 0.0 0.0 - 0.2 /100WBC [facility] NRBC Abs Auto 0.000 0.0 - 0.012 X10*3/uL [facility] Blood Venous blood specimen / Unknown 10/24/2024 9:00 AM EDT 10/24/2024 11:17 AM EDT us Lupe Hinton MD LAB BLOOD ORDERAB LES Final Result [facility] [address] [place] [phone] * Hemoglobin A1c (10/24/2024 9:00 AM EDT) Hemoglobin A1c 6.0 <6.0 % [facility] Comment:Hemoglobin A1C Refer ence Range Adults: 4.8 - 6.0 % Non diabetic: < 6.0 % Goal: < 7.0 %Additional Action Suggested: > 8.0 %Note: Hemoglobin A1c results are invalid for patients with abnormal amounts of HbF. Blood transfusions may impact the HbA1c concentration in the patient sample. Estimated Average Glucose 126 mg/dL [facility] Comment:eAG = Estimated ave rage glucose which is %A1C expressed asaverage glucose, using the formula of the [id number] Glucose study (ADAG), Diabetes Care, Vol.31,#8,Nov. 2007 Blood Venous blood specimen / Unknown 10/24/2024 9:00 AM EDT 10/24/2024 11:17 AM EDT us Lupe Hinton MD LAB BLOOD ORDERAB LES Final Result Performing Organization Address City/[facility]/ZIP Co de Phone Number [facility] [address] [place] [phone] * (ABNORMAL) Ferritin (10/24/2024 9:00 AM EDT) Ferritin 9(L) 10 - 250 ng/mL [facility] Blood Venous blood specimen / Unknown 10/24/2024 9:00 AM EDT 10/24/2024 11:17 AM EDT us Lupe Hinton MD LAB BLOOD ORDERAB LES Final Result Performing Organization Address [facility]/ZIP Co de Phone Number [facility] [address] [place] [phone] * (ABNORMAL) Lipid Panel, Standard (10/24/2024 9:00 AM EDT) Triglycerides 99 <150 mg/dL [facility] Comment:Desirable Triglyceri de: less than 150 mg/dLBorderline High Triglyceride 150-199 mg/dLHigh Triglyceride: 200-499 mg/dLVery High Triglyceride: greater than or equal to 5OO mg/dL Cholesterol 164 <200 mg/dL [facility] Comment:Desirable Cholestero l: less than 200 mg/dLBorderline High Cholesterol: 200-239 mg/dLHigh Cholesterol: greater than 239 mg/dL LDL Cholesterol Calculated 103(H) <100 mg/dL [facility] Comment:Desirable LDL: less than 100 mg/dLNear Optimal/Above Optimal LDL: 110- 129 mg/dLBorderline High LDL: 130-159 mg/dLHigh LDL: 160-189 mg/dLVery High LDL: greater than or equal to 190 mg/dL HDL Cholesterol 42 >40 mg/dL [facility] Comment:Desirable HDL: great er than 40 mg/dL Note: This HDL assay may give artificially low results in patients with liver disease. Blood Venous blood specimen / Unknown 10/24/2024 9:00 AM EDT 10/24/2024 11:17 AM EDT Lupe Hinton MD LAB BLOOD ORDERAB LES Final Result [facility] [address] [place] [phone] * (ABNORMAL) Comprehensive Metabolic Panel (10/24/2024 9:00 AM EDT) Sodium 137 135 - 145 mmol/L [facility] Potassium 4.1 3.3 - 5.1 mmol/L [facility] Chloride 106 96 - 108 mmol/L [facility] Carbon Dioxide 24 22 - 29 mmol/L [facility] Anion Gap 11(L) 12 - 20 [facility] Urea Nitrogen (BUN) 12 9 - 16 mg/dL [facility] Creatinine, Serum 0.93 0.5 - 1.4 mg/dL [facility] Estimated Glomerular Filt Rate >60 [facility] Comment:Chronic Kidney Disea se: Estimated GFR < 60 mL/min/1.03t2Lbnxaj Kidney Disease: Estimated GFR < 15 mL/min/1.73m2 Glucose 100 60 - 115 mg/dL [facility] Calcium 8.7 8.4 - 10.2 mg/dL [facility] Bilirubin, Total 0.3 0.0 - 1.0 mg/dL [facility] Aspartate Amino Transferase 17 5 - 31 U/L [facility] Alanine Aminotransferase 16 0 - 31 U/L [facility] Total Protein 6.8 6.5 - 8.0 g/dL [facility] Albumin Level 4.0 3.5 - 5.0 g/dL [facility] Alkaline Phosphatase 54 39 - 117 U/L [facility] Blood Venous blood specimen / Unknown 10/24/2024 9:00 AM EDT 10/24/2024 11:17 AM EDT Lupe Hinton MD LAB BLOOD ORDERAB LES Final Result [facility] [address] [place] [phone] * BI Mammogram Screening Tomosynthesis Bilateral (10/23/2024 11:55 AM EDT) Anatomical Region Laterality Modality Breast Bilateral Mammography 10/23/2024 11:5 5 AM EDT Narrative 11/08/2024 4:44 PM EDT [facility] [address] [place] [address] Mammography Report Signed Patient: Jennifer George MR#: [id number] : 1980 Acct:[id number] Age/Sex: 44 / F ADM Date: 10/23/24 Loc: HO.MAMMO Attending Dr: Lupe Hinton MD Ordering Physician: Lupe Nolen MD Re sults: 1Negative Date of Service: 10/23/24 Follow Up: 1 Year From [facility] Mammogram Procedure(s): MM tomosynthesis screening BI Accession Number(s): [id number] cc: Lupe Nolen MD EXAMINATION: MM SCREENING DIGITAL BREAST TOMOSYNTHESIS, BILATERAL CLINICAL INFORMATION: Screening. Asymptomatic. COMPARISON: Mammography: Comparison is made with available priors TECHNIQUE: Digital breast mammography with tomosynthesis is performed in both the craniocaudal and mediolateral oblique views along with computer-aided detection (CAD). FINDINGS: There are scattered areas of fibroglandular density (ACR BI-RADS breast composition Category b). There are no significant masses, abnormal calcifications, or other abnormalities. MM/MM tomosynthesis screening BI IMPRESSION: No mammographic evidence of malignancy. ASSESSMENT: BI-RADS BI-RADS 1 - Negative RECOMMENDATION: Routine annual mammography screening. 1 year F/U This examination should not preclude the clinical evaluation of a suspicious palpable abnormality. This patient's information was entered into a reminder system with a target due date for their next mammogram. Electronically signed by: Susan Edmonds DO 11/08/2024 04:40 PM EDT RP Dictated By: Susan Edmonds DO Signed By: <Electronically signed by Susan Edmonds DO in OV> 11/08/24 1640 DD/ 1155 TD/TT: 10/23/24 1229 Toe Stripper: Procedure Note Donotuseinterpreter, Image - 11/08/20[facility] [address] [place] [address] Mammography Report Signed Patient: Carl George#: [id number] : 1980Acct:[id number] Age/Sex: 44 / FADM Date: 10/23/24 Loc: HO.MAMMO Attending Dr: Lupe Hinton MD Ordering Physician: Lupe Nolene sults: 1Negative Date of Service: 10/23/24Follow Up: 1 [facility] From [facility] Mammogram Procedure(s): MM tomosynthesis screening BI Accession Number(s): [id number] cc: Lupe Nolen MD EXAMINATION: MM SCREENING DIGITAL BREAST TOMOSYNTHESIS, BILATERAL CLINICAL INFORMATION: Screening. Asymptomatic. COMPARISON: Mammography: Comparison is made with available priors TECHNIQUE: Digital breast mammography with tomosynthesis is performed in both the craniocaudal and mediolateral oblique views along with computer-aided detection (CAD). FINDINGS: There are scattered areas of fibroglandular density (ACR BI-RADS breast composition Category b). There are no significant masses, abnormal calcifications, or other abnormalities. MM/MM tomosynthesis screening BI IMPRESSION: No mammographic evidence of malignancy. ASSESSMENT: BI-RADS BI-RADS 1 - Negative RECOMMENDATION: Routine annual mammography screening. 1 year F/U This examination should not preclude the clinical evaluation of a suspicious palpable abnormality. This patient's information was entered into a reminder system with a target due date for their next mammogram. Electronically signed by: Susan Edmonds DO 11/08/2024 04:40 PM EDT RP Dictated By: Susan Edmonds DO Signed By: <Electronically signed by Susan Edmonds DO in OV> 11/08/24 1640 DD/ 1155 TD/TT: 10/23/24 1229 Toe Stripper: Lupe Hinton MD IMG BI PROCEDURES Edited Result - Final * POCT Rapid Influenza B BATISTA ID NOW (09/09/2024 9:16 AM EDT) Influenza B Negative Negative, Indeterminate [facility] QC Media Lot # [id number] [facility] Lot# Expiration Date 100,826 [facility] Swab 09/09/2024 9:16 AM EDT us Thony Christensen MD POINT OF CARE TEST ENTER/EDIT OR DERABLES Final Result Performing Organization Address [facility] Co de Phone Number [facility] [address] [place] [phone] * POCT Rapid Influenza A BATISTA ID NOW (09/09/2024 9:16 AM EDT) Influenza A Negative Negative, Indeterminate [facility] QC Media Lot # [id number] [facility] Lot# Expiration Date 100,82 [facility] Swab 09/09/2024 9:16 AM EDT us Thony Christensen MD POINT OF CARE TEST ENTER/EDIT OR DERABLES Final Result Performing Organization Address City/[facility]/ZIP Co de Phone Number [facility] [address] [place] [phone] * POCT Rapid Covid-19 BinaxNOW (09/09/2024 9:13 AM EDT) [facility] Rapid COVID Ag Negative QC Media Lot # [id number] Lot# Expiration Date 63,026 Nares 09/09/2024 9:13 AM EDT Thony Christensen MD POINT OF CARE TEST ENTER/EDIT OR DERABLES Final Result * POCT HGB A1C (09/02/2024 9:29 AM EDT) [facility] Hemoglobin A1C 5.7 4.0 - 6.0 % QC Media Lot # [id number] Lot# Expiration Date 1, Blood 09/02/2024 9:29 AM EDT Lupe Hinton MD POINT OF CARE MAGGIE T ENTER/EDIT ORDERABLES Final Result * POCT Glucose (09/02/2024 9:29 AM EDT) [facility] Glucose Blood, POC 113 60 - 200 mg/dL QC Media Lot # [id number] Lot# Expiration Date Blood Capillary blood specimen / Unknown 09/02/2024 9:29 AM EDT Lupe Hinton MD POINT OF CARE MAGGIE T ENTER/EDIT ORDERABLES Final Result * THINPREP TIS PAP AND HPV mRNA E6/E7, CT/NG, TRICH (06/30/2021 12:00 AM EST) [facility] Chlamydia trachomatis RNA, TMA, Urogenital NOT DETECTED NOT DETECTED [facility] Clinical Information: None given [facility] COMMENT SEE COMMENT [facility] Comment: The analytical performance characteristics of this assay, when used to test SurePath(TM) specimens have been determined by [employer]. The modifications have not been cleared or approved by the FDA. This assay has been validated pursuant to the CLIA regulations and is used for clinical purposes. For additional information, please refer to https://[employer]/faq/NFI590 (This link is being provided for information/ [...] has been evaluated with computer assisted technology. [facility] [employer] [facility] Data Review Specialist: SEE COMMENT [facility] Comment: CELY CALLOWAY(ASCP) CT screening location: [place] [address] HPV nRNA E6/E7 Not Detected Not Detected [facility] [facility] Comment: Methodology: Coding Technician-Mediated Amplification This assay detects E6/E7 viral messenger RNA (mRNA) from 14 high-risk HPV types (16,18,31,33,35,39,45,51,52,56,58,59,66,68). The analytical performance characteristics of this assay have been determined by [employer]. The modifications have not been cleared or approved by the FDA. This assay has been validated pursuant to the CLIA regulations and is used for clinical purposes. For additional information, please refer to http://[employer]/faq/CTL779i2 (This link if provided for information/ educational purposes only.) Interpretation/Re sult: Negative for intraepithelial lesion or malignancy. [facility] LMP: NONE GIVEN [facility] Neisseria gonorrhoeae RNA, TMA, Urogenital NOT DETECTED NOT DETECTED [facility] Prev. BX: NONE GIVEN [facility] Prev. PAP: NONE GIVEN [facility] SOURCE: None given [facility] Statement Of Adequacy: SEE COMMENT [facility] Comment: Satisfactory for evaluation. Endocervical/transformation zone component present. Trichomonas vaginalis, QL, TMA, PAP Vial NOT DETECTED NOT DETECTED [facility] [employer] [facility] Comment: The analytical performance characteristics of this assay have been determined by [employer]. The modifications have not been cleared or approved by the FDA. This assay has been validated pursuant to the CLIA regulations and is used for clinical purposes. 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
--- OUTSIDE RECORDS SUMMARY | 2024-11-18 10:13 | XMS_ITS | Patient Health Record ---
Author Organization [address] [place] [address] Address [address] [place], [place] [phone] Support Name Relationship Address Phone KHADIJAH ALCARAZ Guarantor Unknown Un available Reason For Referral No Information Plan Of Treatment No Information
--- OUTSIDE RECORDS SUMMARY | 2024-11-18 10:13 | XMS_ITS | Clinical Summary ---
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 [employer] Cell Assembly Name Role Phone Physician, Pcp Unknown Primary Care Provider Miriam vailable Social History Tobacco Use Types Packs/Day Years Used Date Smoking Tobacco: Never Assessed Comments Unknown Sex and Gender Information Value Date Recorded Sex Assigned at Not on file Legal Sex Female 1:38 PM EDT Gender Identity Not on file Sexual Orientation Not on file Plan of Treatment Upcoming Encounters Date Type Department Care Team ([facility] st Contact Info) Description 12/04/2024 10:30 AM EDT Consult Orthopedic Surgery - [place] [phone] [phone] Drew Adames DPM [address] [phone] Health Maintenance Due Date Last Done Comments Breast Cancer Screening 1980 DTaP,Tdap,and Td Vaccines (1 - Tdap) 1999 Hepatitis B Vaccines (1 of 3 - 19+ 3-dose series) 1999 Cervical Cancer Screening: P ap Smear 2001 HIV Screening 11/21/2023 Hepatitis C Screening 11/21/2023 Social Influencers of Health Screening 11/21/2023 COVID-19 Vaccine ( - 2023-2 5 season) 2023 Depression Screening 04/30/2024 Influenza Vaccine (#1) 2024 HIB Vaccines Aged Out No longer [...] 5 Years) and At-Risk Patients (6 to 49 Years) Aged Out No longer eligible b ased on patient's age to complete this topic RSV Immunization Patients Un rinku 20 months Aged Out No longer eligible b ased on patient's age to complete this topic Varicella Vaccines Aged Out No longer eligible based on patient's age to complete this topic [place] [address] [place] [address] Care Teams Supervisor Dry Cell Assembly Relationship Specialty Start Date End Date Physician, Pcp Unknown PCP - General 09/09/24
== END 2024-11-18 09:35 | disposition home or self-care (01) ==
LOC: HO.HHCX 09:34
PROVIDERS: Visit Provider Internal Medicine
DX: M79.671 Pain in right foot (principal)
CPT/HCPCS: 73630

== ENCOUNTER → 2024-11-18 09:35 | Outpatient (BNV) | payer OTHER, SELFPAY | PROVIDERS: Visit Provider Radiology Diagnostic Radiology | DX: M79.671 Pain in right foot (principal) | CPT/HCPCS: 73630 ==